=== PATIENT | female | born 1960 | race Caucasian/White ===

== ENCOUNTER 2016-12-15 22:02 | Inpatient (IN) | payer OTHER ==
[~2016-12-15] VITALS: Ht 154.9 cm; Wt 103.6 kg
--- NOTE | ~2016-12-15 | EKG ---
[place], [place] ELECTROCARDIOGRAM REPORT NAME: JAMAL BROWN UNIT #: [id number] ROOM: 405 DOCTOR: MANUELA HWANG MD BIRTHDATE: [birth year] DOS: 12/15/2016 STUDY DONE: 12/15/2016 at 2212. Sinus rhythm at a rate of 90. Low voltage in the precordial leads. Otherwise, normal. MANUELA HWANG MD CM:EKGRPT:ELECTROCARDIOGRAM REPORT [id number] MANUELA HWANG MD
--- NOTE | ~2016-12-15 | ST ---
[place], [place] EXERCISE STRESS TEST REPORT NAME: JAMAL BROWN [facility] #: [id number] UNIT #: [id number] ROOM: 405 DOCTOR: MANUELA HWANG MD BIRTHDATE: [birth year] DOS: 12/16/2016 PHARMACOLOGIC STRESS TEST INDICATIONS: Chest pain, history of coronary artery disease. PROCEDURE: The patient was given a rapid infusion of regadenoson followed by a saline flush. She was administered 0.4 mg intravenously. She experienced dyspnea with the infusion. Her resting heart rate of 70 elver to 97. The resting blood pressure of 126/74 fell to 120/72. She had normal sinus rhythm and a normal electrocardiogram throughout. 40 seconds after the infusion of regadenoson, she was given radionuclide intravenously. IMPRESSION: 1. Well tolerated infusion of regadenoson. 2. Radionuclide injected. Please see the separate imaging report for further details of the patient's stress test results. MANUELA HWANG MD CM:STRESS:EXERCISE STRESS TEST REPORT [id number] MANUELA HWANG MD
[~2016-12-15 22:02] MED LIST: ALBUTEROL0.09 MG/A2 INH; ALLOPURINOL300 MG PO; AMARYL4 MG PO; AMOXICILLIN500 MG PO; AMOXICILLIN875 MG PO; ASPIRIN81 M1 PO; ATIVAN1 MG PO; AUGMENTIN 875 M1 TAB PO; BACTRIM DS 8001 TA1 PO; CIPRODEX 0.3%-7.5 ML OT; DIFLUCAN100 MG PO; DIFLUCAN150 MG PO; FLEXERIL5 MG PO; FLOMAX0.4 MG PO; FLONASE ALLERG9.9 ML NAS; FLONASE0.05 MG/AC NS; HYDROCODONE BIT1 T11 PO; IMDUR SA60 M1 PO; JANUVIA100 MG PO; KEPPRA500 MG PO; LEVAQUIN750 MG PO; LEXAPRO20 MG PO; LIPITOR80 MG PO; LISINOPRIL5 MG PO; LOTRIMIN 1%15 GM T; MACROBID100 M1 PO; MECLIZINE HCL12.5 MG PO; MECLIZINE HCL25 M1 PO; MEDROL DOSEPAK4 MG PO; METFORMIN1000 MG PO; METFORMIN500 MG PO; METOPROLOL SUCC25 M2 PO; MOTRIN800 MG PO; Metformin Hydr500 MG PO; NITROGLYCERIN0.4 MG SL; NYSTATIN 5 ML5 ML; NYSTATIN CREAM15 GM T; PLAVIX75 MG PO; POTASSIUM CITR10 MEQ PO; PREDNISONE20 MG PO; PRILOSEC20 MG PO; PROBIOTIC FORMU1 CAP PO; RANEXA500 MG PO; SALINE MIST 4545 ML NAS; TOPROL XL100 MG PO; TORADOL PO; ULTRAM50 MG PO; VITAMIN D31000 IU PO; VITAMIN D32000 I1 PO; ZANTAC150 MG PO; ZITHROMAX250 MG PO; ZOFRAN ODT4 MG SL; ZYLOPRIM100 MG PO
[2016-12-15 22:13] VITALS: BP 118/64
[2016-12-15 22:41] LABS: BASO # 0.1 10*3/uL (0.0-0.1); BASO % 0.7 % (0.0-1.0); EOS # 0.6 10*3/uL (0.0-0.4); EOS % 6.7 % (1.0-4.0); HEMATOCRIT 30.9 % (37.0-47.0); HEMOGLOBIN 9.9 g/dl (12.0-16.0); LYMPH # 3.2 10*3/uL (1.3-4.4); MEAN CELL VOLUME 90.9 fl (81.0-99.0); MEAN CORPUSCULAR HGB 29.1 pg (27.0-31.0); MEAN PLATELET VOLUME 9.1 fl (9.6-12.3); MONO # 0.7 10*3/uL (0.1-1.0); MONO % 6.9 % (3.0-9.0); NEUT # 4.9 10*3/uL (2.3-7.9); NEUT % 51.5 % (47.0-73.0); PLATELET COUNT AUTOMATED 259 10*3/uL (130-400); RED CELL DISTRI WIDTH 14.8 % (0-14.5); WHITE BLOOD COUNT 9.5 10*3/uL (4.8-10.8)
[2016-12-15 22:50] LABS: PROTHROMBIN TIME 10.5 SECONDS (9.0-12.4)
[2016-12-15 22:58] LABS: ALBUMIN 3.5 gm/dl (3.1-4.5); ALKALINE PHOSPHATASE 110 U/L (45-117); BILIRUBIN, TOTAL 0.3 mg/dl (0.2-1.0); BUN 19 mg/dl (7-24); CARBON DIOXIDE 22 mmol/L (21-32); CHLORIDE 107 mmol/L (98-107); CKMB 1.3 ng/ml (0.5-3.6); CPK 86 U/L (26-192); EST GLOM FILT AFRICAN AMERICAN > 60 ml/min; GLUCOSE 141 mg/dL (65-99); POTASSIUM 4.1 mmol/L (3.5-5.1); SGOT/AST 18 IU/L (3-35); SGPT/ALT 24 U/L (12-78); SODIUM 142 mmol/L (136-145); TOTAL PROTEIN 7.3 gm/dL (6.4-8.2)
[2016-12-15 22:59] LABS: TROPONIN I < 0.015 ng/ml (<0.045)
[2016-12-15] MEDS ORDERED: FEOSOL325 MG PO (23:23)
[2016-12-15] MEDS ORDERED: IMDUR SA60 M1 PO (23:24)
[2016-12-15 23:25] VITALS: BP 132/78
[2016-12-16] VITALS: BP 133/76
[2016-12-16 00:14] VITALS: BP 133/76
[2016-12-16 06:18] LABS: BASO # 0.1 10*3/uL (0.0-0.1); BASO % 0.6 % (0.0-1.0); EOS # 0.6 10*3/uL (0.0-0.4); EOS % 7.3 % (1.0-4.0); HEMATOCRIT 29.2 % (37.0-47.0); HEMOGLOBIN 9.2 g/dl (12.0-16.0); LYMPH # 3.1 10*3/uL (1.3-4.4); LYMPH % 38.8 % (27.0-41.0); MEAN CELL VOLUME 92.1 fl (81.0-99.0); MEAN CORPUSCULAR HGB CONC 31.5 g/dl (33.0-37.0); MEAN PLATELET VOLUME 9.3 fl (9.6-12.3); MONO # 0.6 10*3/uL (0.1-1.0); NEUT # 3.7 10*3/uL (2.3-7.9); NEUT % 46.2 % (47.0-73.0); PLATELET COUNT AUTOMATED 236 10*3/uL (130-400); RED BLOOD COUNT 3.17 10*6/uL (4.10-5.10); RED CELL DISTRI WIDTH 14.7 % (0-14.5)
[2016-12-16 06:38] LABS: HEMOGLOBIN A1c 6.6 % (4.8-5.6)
[2016-12-16 07:04] LABS: BUN 18 mg/dl (7-24); CARBON DIOXIDE 25 mmol/L (21-32); CHLORIDE 108 mmol/L (98-107); CHOLESTEROL 143 mg/dL (<200); EST GLOM FILT AFRICAN AMERICAN > 60 ml/min; GLUCOSE 78 mg/dL (65-99); MAGNESIUM 1.1 mg/dL (1.5-2.1); PHOSPHOROUS 3.5 mg/dL (2.5-4.9); SODIUM 142 mmol/L (136-145); TRIGLYCERIDES 140 mg/dl (<150); VLDL CHOLESTEROL 28 mg/dL (6-40)
[2016-12-16 07:11] LABS: FOLIC ACID 17.35 ng/mL (>5.38); VITAMIN D, 25-HYDROXY 33.9 ng/mL (30-100)
[2016-12-16 07:12] LABS: FREE T4 1.02 ng/dl (0.76-1.46); HDL CHOLESTEROL 38 mg/dl (40-60); LDL CHOLESTEROL 77 mg/dL (9-159)
[2016-12-16 08:00] VITALS: BP 110/74
[2016-12-16] MEDS ORDERED: METOPROLOL SUC100 M1 PO (14:40)
[2016-12-16] MEDS ORDERED: IMDUR SA60 M1 PO (14:40)
== END 2016-12-16 15:54 | disposition home or self-care (01) | DRG 205 ==
LOC: ED 22:02 → 4E 23:11 → EDHOLD 23:11 → 4E 23:41
PROVIDERS: Emergency Medicine; Internal Medicine
DX: M94.0 Chondrocostal junction syndrome [Tietze] (principal); N17.0 Acute kidney failure with tubular necrosis; Z68.42 Body mass index [BMI] 45.0-49.9, adult; I10 Essential (primary) hypertension; E11.9 Type 2 diabetes mellitus without complications; D64.9 Anemia, unspecified; E78.5 Hyperlipidemia, unspecified; R07.89 Other chest pain; I25.10 Atherosclerotic heart disease of native coronary artery without angina pectoris; K21.9 Gastro-esophageal reflux disease without esophagitis; G40.909 Epilepsy, unspecified, not intractable, without status epilepticus; E66.01 Morbid (severe) obesity due to excess calories; R00.0 Tachycardia, unspecified; Z87.440 Personal history of urinary (tract) infections; Z90.49 Acquired absence of other specified parts of digestive tract; Z82.49 Family history of ischemic heart disease and other diseases of the circulatory system; Z88.1 Allergy status to other antibiotic agents; Z88.5 Allergy status to narcotic agent; Z88.8 Allergy status to other drugs, medicaments and biological substances; Z91.048 Other nonmedicinal substance allergy status; Z79.82 Long term (current) use of aspirin; Z79.899 Other long term (current) drug therapy

== ENCOUNTER 2017-04-18 19:28 | Emergency (ER) | payer OTHER ==
[~2017-04-18] VITALS: Ht 170.1 cm; Wt 88.5 kg
[~2017-04-18 19:28] MED LIST changes: +FEOSOL325 MG PO; +METOPROLOL SUC100 M1 PO
[2017-04-18 20:38] LABS: BASO # 0.1 10*3/uL (0.0-0.1); BASO % 0.7 % (0.0-1.0); EOS # 0.7 10*3/uL (0.0-0.4); EOS % 7.8 % (1.0-4.0); HEMATOCRIT 38.2 % (37.0-47.0); HEMOGLOBIN 12.1 g/dl (12.0-16.0); LYMPH # 3.1 10*3/uL (1.3-4.4); MEAN CELL VOLUME 88.2 fl (81.0-99.0); MEAN CORPUSCULAR HGB 27.9 pg (27.0-31.0); MEAN CORPUSCULAR HGB CONC 31.7 g/dl (33.0-37.0); MEAN PLATELET VOLUME 9.3 fl (9.6-12.3); MONO # 0.6 10*3/uL (0.1-1.0); MONO % 6.2 % (3.0-9.0); NEUT # 4.9 10*3/uL (2.3-7.9); NEUT % 52.1 % (47.0-73.0); PLATELET COUNT AUTOMATED 230 10*3/uL (130-400); RED BLOOD COUNT 4.33 10*6/uL (4.10-5.10); RED CELL DISTRI WIDTH 14.6 % (0-14.5); WHITE BLOOD COUNT 9.4 10*3/uL (4.8-10.8)
[2017-04-18 20:56] LABS: ALBUMIN 3.6 gm/dl (3.1-4.5); ALKALINE PHOSPHATASE 88 U/L (45-117); BILIRUBIN, TOTAL 0.3 mg/dl (0.2-1.0); BUN 16 mg/dl (7-24); CARBON DIOXIDE 24 mmol/L (21-32); CHLORIDE 108 mmol/L (98-107); EST GLOM FILT AFRICAN AMERICAN > 60 ml/min; GLUCOSE 118 mg/dL (65-99); MAGNESIUM 1.6 mg/dL (1.5-2.1); POTASSIUM 4.4 mmol/L (3.5-5.1); SGOT/AST 21 IU/L (3-35); SGPT/ALT 28 U/L (12-78); SODIUM 139 mmol/L (136-145); TOTAL PROTEIN 7.5 gm/dL (6.4-8.2)
[2017-04-18 20:57] LABS: TROPONIN I < 0.015 ng/ml (<0.045)
[2017-04-18 21:01] LABS: BILIRUBIN NEGATIVE (NEGATIVE); BLOOD TRACE-INTACT (NEGATIVE); CLARITY CLEAR (CLEAR); COLOR YELLOW (YELLOW); GLUCOSE NEGATIVE (NEGATIVE); KETONE TRACE (NEGATIVE); LEUKO ESTERASE NEGATIVE (NEGATIVE); NITRITE NEGATIVE (NEGATIVE); PROTEIN NEGATIVE (NEGATIVE); SPECIFIC GRAVITY >= 1.030 (1.005-1.030); UROBILINOGEN 0.2 E.U./dl (0.2-1.0)
[2017-04-18 21:16] LABS: BACTERIA 1+
[2017-04-18 21:17] LABS: URINE REFLEX COMMENT NO (NO)
[2017-04-19] MEDS ORDERED: NORCO 5-325 TA1 EACH PO (01:10)
[2017-04-19] MEDS ORDERED: ZOFRAN ODT4 MG SL (01:10)
== END 2017-04-19 01:22 | disposition home or self-care (01) ==
LOC: ED 19:28
PROVIDERS: Emergency Medicine Emergency Medical Services
DX: N23 Unspecified renal colic (principal); I10 Essential (primary) hypertension; I25.10 Atherosclerotic heart disease of native coronary artery without angina pectoris; E11.9 Type 2 diabetes mellitus without complications; K21.0 Gastro-esophageal reflux disease with esophagitis; E78.5 Hyperlipidemia, unspecified; Z87.442 Personal history of urinary calculi; Z88.1 Allergy status to other antibiotic agents; Z88.6 Allergy status to analgesic agent; Z88.8 Allergy status to other drugs, medicaments and biological substances; Z79.899 Other long term (current) drug therapy; Z79.82 Long term (current) use of aspirin

== ENCOUNTER 2017-05-06 20:30 | Emergency (ER) | payer OTHER ==
[~2017-05-06 20:30] MED LIST changes: +NORCO 5-325 TA1 EACH PO
[2017-05-06] MEDS ORDERED: ROBITUSSIN DM 105 ML PO (21:02)
[2017-05-06] MEDS ORDERED: PREDNISONE10 MG PO (21:02)
[2017-05-06] MEDS ORDERED: FLONASE ALLERG9.9 ML NAS (21:02)
[2017-05-06] MEDS ORDERED: CLARITIN10 MG PO (21:02)
== END 2017-05-06 22:08 | disposition home or self-care (01) ==
LOC: ED 20:30
DX: B34.9 Viral infection, unspecified (principal); R03.0 Elevated blood-pressure reading, without diagnosis of hypertension; I25.10 Atherosclerotic heart disease of native coronary artery without angina pectoris; K21.9 Gastro-esophageal reflux disease without esophagitis; I10 Essential (primary) hypertension; E11.9 Type 2 diabetes mellitus without complications; G40.909 Epilepsy, unspecified, not intractable, without status epilepticus; E78.5 Hyperlipidemia, unspecified; Z88.6 Allergy status to analgesic agent; Z88.1 Allergy status to other antibiotic agents; Z88.8 Allergy status to other drugs, medicaments and biological substances; Z79.82 Long term (current) use of aspirin; Z79.899 Other long term (current) drug therapy

== ENCOUNTER → 2018-02-16 | Outpatient (CLI) | payer OTHER ==
[~2018-02-16] MED LIST changes: +CLARITIN10 MG PO; +PREDNISONE10 MG PO; +ROBITUSSIN DM 105 ML PO
== END | disposition home or self-care (01) ==
LOC: US 13:20
DX: R93.8 Abnormal findings on diagnostic imaging of other specified body structures (principal); N95.0 Postmenopausal bleeding

== ENCOUNTER 2018-11-02 14:12 | Emergency (ER) | payer OTHER ==
[~2018-11-02] VITALS: Ht 154.9 cm; Wt 100.7 kg
--- NOTE | ~2018-11-02 | EKG ---
[place], [place] ELECTROCARDIOGRAM REPORT NAME: JAMAL BROWN UNIT #: [id number] ROOM: DOCTOR: EPIPHANY DRAFT REPORT BIRTHDATE: [birth year] [facility] Test Date: 2018-11-02 Test Time: 14:59:46 Pat Name: JAMAL BROWN Department: Room: Gender: F Medical Transcription Editor: Kaity Andino : 1960 Requested By: MEGHAN GOODMAN Order Number: [id number] Reading MD: Emilio Steiner MD Measurements Intervals [place] Rate: 69 P: 50 ND: 150 QRS: -4 QRSD: 127 T: 1 QT: 407 QTc: 436 Interpretive Statements Sinus rhythm Right bundle branch block Low voltage precordial leads. No previous ECG available for comparison Electronically Signed On 11-05-2018 15:24:31 PST by Emilio Setiner MD CM:EKGRPT:ELECTROCARDIOGRAM REPORT [id number] MEGHAN GOODMAN EPIPHANY DRAFT REPORT MEGHAN GOODMAN
[~2018-11-02 14:12] MED LIST changes: -CEPHALEXIN500 M1 PO; -MEDROXYPROGESTE10 M1 PO; -Meclizine25 MG PO; -NYST SUSP PO; -STOOL SOFTENER100 M3 PO
[2018-11-02 14:37] LABS: BILIRUBIN NEGATIVE (NEGATIVE); BLOOD TRACE-INTACT (NEGATIVE); CLARITY CLEAR (CLEAR); COLOR YELLOW (YELLOW); GLUCOSE 2+ (NEGATIVE); KETONE NEGATIVE (NEGATIVE); LEUKO ESTERASE 1+ (NEGATIVE); NITRITE NEGATIVE (NEGATIVE); PH 5.5 (5.0-9.0)
[2018-11-02 14:45] LABS: BACTERIA 1+; HYALINE CAST 0-2
[2018-11-02 14:55] LABS: BASO # 0.1 10*3/uL (0.0-0.1); BASO % 1.1 % (0.0-1.0); EOS # 0.9 10*3/uL (0.0-0.4); EOS % 10.8 % (1.0-4.0); HEMATOCRIT 39.5 % (37.0-47.0); HEMOGLOBIN 13.1 g/dl (12.0-16.0); LYMPH # 2.1 10*3/uL (1.3-4.4); LYMPH % 25.6 % (27.0-41.0); MEAN CELL VOLUME 93.4 fl (81.0-99.0); MEAN CORPUSCULAR HGB CONC 33.2 g/dl (33.0-37.0); MEAN PLATELET VOLUME 9.5 fl (9.6-12.3); MONO # 0.6 10*3/uL (0.1-1.0); NEUT # 4.5 10*3/uL (2.3-7.9); NEUT % 55.1 % (47.0-73.0); PLATELET COUNT AUTOMATED 217 10*3/uL (130-400); RED BLOOD COUNT 4.23 10*6/uL (4.10-5.10); RED CELL DISTRI WIDTH 13.4 % (0-14.5); WHITE BLOOD COUNT 8.1 10*3/uL (4.8-10.8)
[2018-11-02 15:04] LABS: ACT PARTIAL THROMBO TIME 21.8 SECONDS (20.8-31.5)
[2018-11-02 15:16] LABS: ALBUMIN 3.5 gm/dl (3.1-4.5); ALKALINE PHOSPHATASE 110 U/L (45-117); BUN 18 mg/dl (7-24); CHLORIDE 105 mmol/L (98-107); CREATININE 1.06 mg/dL (0.55-1.02); LIPASE 244 U/L (73-393); POTASSIUM 4.5 mmol/L (3.5-5.1); SGOT/AST 25 IU/L (3-35); SGPT/ALT 30 U/L (12-78); SODIUM 138 mmol/L (136-145); TOTAL PROTEIN 7.6 gm/dL (6.4-8.2)
[2018-11-02 15:17] LABS: TROPONIN I < 0.015 ng/ml (<0.045)
[2018-11-02] MEDS ORDERED: CEPHALEXIN500 M1 PO ×2 (17:20→17:44)
[2018-11-02] MEDS ORDERED: Meclizine25 MG PO ×2 (17:20→17:44)
[2018-11-02] MEDS ORDERED: DIFLUCAN150 MG PO (17:42)
[2018-11-02] MEDS ORDERED: NYST SUSP PO (17:42)
[2019-03-06] MEDS ORDERED: METOPROLOL SUC100 M1 PO (12:56)
[2019-03-06] MEDS ORDERED: MEDROXYPROGESTE10 M1 PO (12:57)
[2019-03-06] MEDS ORDERED: STOOL SOFTENER100 M3 PO (12:58)
== END 2018-11-02 17:32 | disposition home or self-care (01) ==
LOC: ED 14:12
PROVIDERS: Nurse Practitioner Family
DX: R42 Dizziness and giddiness (principal); N39.0 Urinary tract infection, site not specified; H92.02 Otalgia, left ear; I25.10 Atherosclerotic heart disease of native coronary artery without angina pectoris; E11.9 Type 2 diabetes mellitus without complications; K21.9 Gastro-esophageal reflux disease without esophagitis; E78.5 Hyperlipidemia, unspecified; I10 Essential (primary) hypertension; E66.01 Morbid (severe) obesity due to excess calories; G40.909 Epilepsy, unspecified, not intractable, without status epilepticus; Z91.048 Other nonmedicinal substance allergy status; Z88.1 Allergy status to other antibiotic agents; Z88.6 Allergy status to analgesic agent; Z88.8 Allergy status to other drugs, medicaments and biological substances; Z79.899 Other long term (current) drug therapy; Z79.84 Long term (current) use of oral hypoglycemic drugs; Z79.82 Long term (current) use of aspirin

== ENCOUNTER → 2018-11-02 | Outpatient (CLI) | payer OTHER ==
[~2018-11-02] MED LIST changes: +CEPHALEXIN500 M1 PO; +MEDROXYPROGESTE10 M1 PO; +Meclizine25 MG PO; +NYST SUSP PO; +STOOL SOFTENER100 M3 PO; +VITAMIN D32000 UNIT PO
--- NOTE | ~2018-11-02 | ST ---
[place], [place] EXERCISE STRESS TEST REPORT NAME: JAMAL BROWN [facility] #: [id number] UNIT #: [id number] ROOM: DOCTOR: NELLI CONTE MD BIRTHDATE: [birth year] DOS: 11/02/2018 LEXISCAN STRESS EKG REPORT REFERRING PHYSICIAN: Dr. Steiner. INDICATION: Precordial chest pain. The patient was underwent standard protocol Lexiscan stress EKG. Baseline EKG showed normal sinus rhythm with incomplete right bundle branch block. Heart rate of 68. The patient's baseline blood pressure is 130/80. The patient's peak heart was 103 with a blood pressure 122/78. The patient had no chest pain, no EKG changes, no ischemic changes. SUMMARY OF FINDINGS: Unremarkable Lexiscan stress EKG. Please see separate report for perfusion scan results. NELLI CONTE MD CM:STRESS:EXERCISE STRESS TEST REPORT [id number] NELLI CONTE MD
--- NOTE | 2018-11-02 11:59 | NUR ---
INFORMED SIGNED CONSENT OBTAINED FOR LEXISCAN STRESS TEST WITH DR CONTE. RESTING EKG RBBB HR 68 BP 130/80. PULSE OX 96% LUNGS CLEAR. PT COMPLETED ONE MINUTE OF A LEXISCAN PROTOCOL WITH PT RECEIVING LEXISCAN 0.4MG IV OVER 10 SECONDS. PT C/O SOB WITH INJECTION. LAST RECOVERY HR OF 98 BP 122/78. NO ARRHYTHMIAS NOTED NONDIAGNOSITIC RBBB. PT IN STABLE CONDITION, AWAITING NUCLEAR IMAGES.
--- NOTE | 2018-11-02 14:05 | NUR ---
STRESS IMAGING COMPLETED AND SAT UP. C/O HEADACHE AND DIZZINESS WITH SITTING UP. WHEN TURNS HEAD C/O FEELING THE "ROOM IS SPINNING." HAD SMALL EMESIS. WITH PT. TAKEN TO EMERGENCY ROOM VIA WHEELCHAIR IN STABLE CONDITION.
--- NOTE | 2018-11-02 14:15 | NUR ---
DR. CONTE NOTIFIED PT WAS TAKEN TO ER.
== END | disposition home or self-care (01) ==
LOC: CARD 00:45
DX: R07.2 Precordial pain (principal); R53.81 Other malaise

== ENCOUNTER → 2018-11-15 | Outpatient (CLI) | payer OTHER ==
[~2018-11-15] MED LIST changes: +CEPHALEXIN500 M1 PO; +MEDROXYPROGESTE10 M1 PO; +Meclizine25 MG PO; +NYST SUSP PO; +STOOL SOFTENER100 M3 PO
== END | disposition home or self-care (01) ==
LOC: CARD 02:39
DX: R06.09 Other forms of dyspnea (principal)

== ENCOUNTER → 2019-03-13 | Day surgery (SDC) | payer OTHER ==
[~2019-03-13] VITALS: Ht 154.9 cm; Wt 103.4 kg
--- NOTE | ~2019-03-13 | O ---
[place], [place] OPERATIVE NOTE [id number] UNIT #: [id number] ROOM: DOCTOR: AAMIR MOSLEY MD BIRTHDATE: [birth year] DOS: 03/13/2019 PREOPERATIVE DIAGNOSIS: Cataract, right eye. POSTOPERATIVE DIAGNOSIS: Cataract, right eye. OPERATION: Extracapsular cataract extraction by phacoemulsification with posterior chamber intraocular lens implantation, right eye. ANESTHESIA: Monitored standby. OPERATIVE FINDINGS AND PROCEDURE: 2% Xylocaine topical anesthetic gel was applied to the eye in the preop area. The patient was taken to the operating room and prepped and draped in the standard fashion for sterile intraocular surgery. A time out procedure was performed verifying correct patient, correct site and corrects lens with Awa Mosley M.D. The operating microscope was swung into position and the lid speculum was inserted. Using a Alejandrina paracentesis blade, a paracentesis was made through clear cornea. Viscoelastic was used to fill the anterior chamber. Using a metal keratome a 2.4 mm self-sealing clear corneal cataract incision was made temporally at the limbus. Using a pre-bent 25 gauge cystotome needle, a standard continuous curvilinear capsulorrhexis was performed. The anterior capsule was removed with forceps. The lens nucleus was hydrodissected and phacoemulsified in the posterior chamber. Cortical material was removed with the irrigation aspiration hand piece and the posterior capsule was then polished with a curet under irrigation. The posterior chamber and capsular bag were filled with viscoelastic. A posterior chamber intraocular lens manufactured by: [employer]reet, Model #[id number] and 17.5 diopters in strength were then inserted into the posterior chamber and within the capsular bag using the lens cartridge and injector system. Viscoelastic was removed using the irrigation aspiration handpiece. The anterior chamber was filled with balanced salt solution through the paracentesis. Both the paracentesis site and cataract incisions were hydrated with BSS and verified to be water-tight and self-sealing. The incision checked to be water-tight using a Weck-Bernarda sponge. The integrity of the cataract wound and ocular tension were checked. Lid speculum and drapes were removed. The patient was transferred from the operating room to the recovery room in satisfactory condition. [place], [place] OPERATIVE NOTE NAME: JAMAL BROWN UNIT #: [id number] ROOM: DOCTOR: AAMIR MOSLEY MD BIRTHDATE: [birth year] AAMIR MOSLEY MD CM:OPRECORD:OPERATIVE NOTE 0814 1043 AAMIR MOSLEY MD 03/13/19 1041 interface
[2019-03-13 06:45] VITALS: BP 117/66
[2019-03-13 08:13] VITALS: BP 125/63
[2019-03-13 08:28] VITALS: BP 119/62
[2019-03-13 08:42] VITALS: BP 116/68
== END | disposition home or self-care (01) ==
LOC: SDC 03-07 08:00
DX: E11.36 Type 2 diabetes mellitus with diabetic cataract (principal); H25.11 Age-related nuclear cataract, right eye; I10 Essential (primary) hypertension; G40.909 Epilepsy, unspecified, not intractable, without status epilepticus; F32.9 Major depressive disorder, single episode, unspecified; K21.9 Gastro-esophageal reflux disease without esophagitis; E66.9 Obesity, unspecified; I25.118 Atherosclerotic heart disease of native coronary artery with other forms of angina pectoris; M19.90 Unspecified osteoarthritis, unspecified site; Z68.41 Body mass index [BMI] 40.0-44.9, adult; Z88.8 Allergy status to other drugs, medicaments and biological substances; Z88.1 Allergy status to other antibiotic agents; Z79.899 Other long term (current) drug therapy; Z79.84 Long term (current) use of oral hypoglycemic drugs; Z79.82 Long term (current) use of aspirin; Z98.890 Other specified postprocedural states; Z87.442 Personal history of urinary calculi; Z91.048 Other nonmedicinal substance allergy status; Z87.01 Personal history of pneumonia (recurrent); Z82.49 Family history of ischemic heart disease and other diseases of the circulatory system; Z82.3 Family history of stroke; Z83.3 Family history of diabetes mellitus

== ENCOUNTER → 2019-04-17 | Day surgery (SDC) | payer OTHER ==
[~2019-04-17] VITALS: Ht 154.9 cm; Wt 103.4 kg
--- NOTE | ~2019-04-17 | O ---
[place], [place] OPERATIVE NOTE NAME: JAMAL BROWN UNIT #: [id number] ROOM: DOCTOR: AAMIR MOSLEY MD BIRTHDATE: [birth year] DOS: 04/17/2019 PREOPERATIVE DIAGNOSIS: Cataract, left eye. POSTOPERATIVE DIAGNOSIS: Cataract, left eye. OPERATION: Extracapsular cataract extraction by phacoemulsification with posterior chamber intraocular lens implantation, left eye. ANESTHESIA: Monitored standby. OPERATIVE FINDINGS AND PROCEDURE: 2% Xylocaine topical anesthetic gel was applied to the eye in the preop area. The patient was taken to the operating room and prepped and draped in the standard fashion for sterile intraocular surgery. A time out procedure was performed verifying correct patient, correct site and corrects lens with Awa Mosley M.D. The operating microscope was swung into position and the lid speculum was inserted. Using a Alejandrina paracentesis blade, a paracentesis was made through clear cornea. A mixture of preservative free lidocaine 4% and preservative-free epinephrine 1:1000 in balanced salt solution was injected into the anterior chamber. Viscoelastic was used to fill the anterior chamber. Using a metal keratome a 2.4 mm self-sealing clear corneal cataract incision was made temporally at the limbus. Using a pre-bent 25 gauge cystotome needle, a standard continuous curvilinear capsulorrhexis was performed. The anterior capsule was removed with forceps. The lens nucleus was hydrodissected and phacoemulsified in the posterior chamber. Cortical material was removed with the irrigation aspiration hand piece and the posterior capsule was then polished with a curet under irrigation. The posterior chamber and capsular bag were filled with viscoelastic. A posterior chamber intraocular lens manufactured by: Preet, Model #[id number] and 21.0 diopters in strength were then inserted into the posterior chamber and within the capsular bag using the lens cartridge and injector system. Viscoelastic was removed using the irrigation aspiration handpiece. The anterior chamber was filled with balanced salt solution through the paracentesis. Both the paracentesis site and cataract incisions were hydrated with BSS and verified to be water-tight and self-sealing. Cefuroxime 1 mg/0.1 mL was injected into the anterior chamber through the paracentesis site. The incision checked to be water-tight using a Weck-Bernarda sponge. The integrity of the cataract wound and ocular tension were checked. Lid speculum and drapes were removed. The patient was transferred from the operating room to the recovery room in satisfactory condition. [place], [place] OPERATIVE NOTE NAME: JAMAL BROWN UNIT #: [id number] ROOM: DOCTOR: AAMIR MOSLEY MD BIRTHDATE: [birth year] AAMIR MOSLEY MD CM:OPRECORD:OPERATIVE NOTE 1103 1201 AAMIR MOSLEY MD 04/17/19 1202 interface
[2019-04-17 10:13] VITALS: BP 146/42
[2019-04-17 10:50] VITALS: BP 134/84
[2019-04-17 11:05] VITALS: BP 121/79
[2019-04-17 11:17] VITALS: BP 126/72
== END | disposition home or self-care (01) ==
LOC: SDC 04-12 14:00
DX: H25.812 Combined forms of age-related cataract, left eye (principal); I10 Essential (primary) hypertension; I25.119 Atherosclerotic heart disease of native coronary artery with unspecified angina pectoris; E11.9 Type 2 diabetes mellitus without complications; F41.9 Anxiety disorder, unspecified; F32.9 Major depressive disorder, single episode, unspecified; K21.9 Gastro-esophageal reflux disease without esophagitis; G47.33 Obstructive sleep apnea (adult) (pediatric); E78.5 Hyperlipidemia, unspecified; E66.9 Obesity, unspecified; Z68.41 Body mass index [BMI] 40.0-44.9, adult; Z98.890 Other specified postprocedural states; Z79.84 Long term (current) use of oral hypoglycemic drugs; Z79.899 Other long term (current) drug therapy; Z88.1 Allergy status to other antibiotic agents; Z88.8 Allergy status to other drugs, medicaments and biological substances; Z95.5 Presence of coronary angioplasty implant and graft; Z82.49 Family history of ischemic heart disease and other diseases of the circulatory system; Z83.3 Family history of diabetes mellitus; Z82.3 Family history of stroke

== ENCOUNTER 2019-05-26 20:10 | Emergency (ER) | payer OTHER ==
[~2019-05-26] VITALS: Ht 154.9 cm; Wt 98.4 kg
[2019-05-26 21:15] LABS: BASO # 0.1 10*3/uL (0.0-0.1); BASO % 1.1 % (0.0-1.0); EOS # 0.7 10*3/uL (0.0-0.4); EOS % 8.2 % (1.0-4.0); LYMPH % 34.4 % (27.0-41.0); MEAN CELL VOLUME 96.9 fl (81.0-99.0); MEAN CORPUSCULAR HGB 31.4 pg (27.0-31.0); MEAN CORPUSCULAR HGB CONC 32.4 g/dl (33.0-37.0); MEAN PLATELET VOLUME 9.4 fl (9.6-12.3); MONO # 0.6 10*3/uL (0.1-1.0); MONO % 6.8 % (3.0-9.0); NEUT # 4.3 10*3/uL (2.3-7.9); NEUT % 49.3 % (47.0-73.0); PLATELET COUNT AUTOMATED 222 10*3/uL (130-400); RED BLOOD COUNT 3.82 10*6/uL (4.10-5.10); RED CELL DISTRI WIDTH 13.9 % (0-14.5); WHITE BLOOD COUNT 8.8 10*3/uL (4.8-10.8)
[2019-05-26 21:29] LABS: ALBUMIN 3.6 gm/dl (3.1-4.5); ALKALINE PHOSPHATASE 86 U/L (45-117); BUN 18 mg/dl (7-24); CHLORIDE 109 mmol/L (98-107); CREATININE 1.09 mg/dL (0.55-1.02); SGOT/AST 13 IU/L (3-35); SGPT/ALT 22 U/L (12-78); SODIUM 138 mmol/L (136-145); TOTAL PROTEIN 7.1 gm/dL (6.4-8.2)
[2019-05-26 22:23] LABS: BILIRUBIN NEGATIVE (NEGATIVE); BLOOD TRACE-INTACT (NEGATIVE); CLARITY SL CLOUDY (CLEAR); COLOR YELLOW (YELLOW); GLUCOSE NEGATIVE (NEGATIVE); KETONE NEGATIVE (NEGATIVE); LEUKO ESTERASE 1+ (NEGATIVE); NITRITE NEGATIVE (NEGATIVE); SPECIFIC GRAVITY >= 1.030 (1.005-1.030); UROBILINOGEN 0.2 E.U./dl (0.2-1.0)
[2019-05-26 22:44] LABS: EPITHELIAL CELLS 15-20
[2019-05-26 22:45] LABS: BACTERIA TRACE
[2019-05-26] MEDS ORDERED: CYCLOBENZAPRINE10 MG PO (23:49)
== END 2019-05-26 23:53 | disposition home or self-care (01) ==
LOC: ED 20:10
PROVIDERS: Emergency Medicine
DX: K57.90 Diverticulosis of intestine, part unspecified, without perforation or abscess without bleeding (principal); I25.10 Atherosclerotic heart disease of native coronary artery without angina pectoris; E11.9 Type 2 diabetes mellitus without complications; I10 Essential (primary) hypertension; K21.9 Gastro-esophageal reflux disease without esophagitis; E78.5 Hyperlipidemia, unspecified; E66.01 Morbid (severe) obesity due to excess calories; G40.909 Epilepsy, unspecified, not intractable, without status epilepticus; Z88.1 Allergy status to other antibiotic agents; Z88.6 Allergy status to analgesic agent; Z88.8 Allergy status to other drugs, medicaments and biological substances; Z79.899 Other long term (current) drug therapy; Z79.82 Long term (current) use of aspirin; Z87.442 Personal history of urinary calculi

== ENCOUNTER → 2019-07-25 | Day surgery (SDC) | payer OTHER ==
[~2019-07-25] VITALS: Ht 154.9 cm; Wt 98.4 kg
[~2019-07-25] MED LIST changes: +CYCLOBENZAPRINE10 MG PO; +IBU800 MG PO
[2019-07-25 07:18] VITALS: BP 137/75
[2019-07-25 08:17] VITALS: BP 97/58
[2019-07-25 08:30] VITALS: BP 121/58
[2019-07-25 08:46] VITALS: BP 129/70
== END | disposition home or self-care (01) ==
LOC: SDC 07-23 09:30
DX: Z12.11 Encounter for screening for malignant neoplasm of colon (principal); K57.30 Diverticulosis of large intestine without perforation or abscess without bleeding; I10 Essential (primary) hypertension; I25.10 Atherosclerotic heart disease of native coronary artery without angina pectoris; K21.9 Gastro-esophageal reflux disease without esophagitis; F41.9 Anxiety disorder, unspecified; E11.9 Type 2 diabetes mellitus without complications; I25.2 Old myocardial infarction; Z79.82 Long term (current) use of aspirin; Z79.899 Other long term (current) drug therapy; Z88.8 Allergy status to other drugs, medicaments and biological substances; Z90.49 Acquired absence of other specified parts of digestive tract; Z98.890 Other specified postprocedural states; Z82.49 Family history of ischemic heart disease and other diseases of the circulatory system; Z83.3 Family history of diabetes mellitus; Z82.3 Family history of stroke; Z86.010 Personal history of colon polyps
CPT/HCPCS: 00812; G0105

== ENCOUNTER 2019-08-11 18:20 | Emergency (ER) | payer OTHER ==
[~2019-08-11] VITALS: Ht 154.9 cm; Wt 97.5 kg
[~2019-08-11 18:20] MED LIST changes: -IBU800 MG PO
[2019-08-11 19:44] LABS: BILIRUBIN NEGATIVE (NEGATIVE); BLOOD 1+ (NEGATIVE); CLARITY CLEAR (CLEAR); COLOR YELLOW (YELLOW); GLUCOSE 1+ (NEGATIVE); KETONE NEGATIVE (NEGATIVE); LEUKO ESTERASE 1+ (NEGATIVE); NITRITE NEGATIVE (NEGATIVE); PH 5.5 (5.0-9.0); SPECIFIC GRAVITY >= 1.030 (1.005-1.030); UROBILINOGEN 0.2 E.U./dl (0.2-1.0)
[2019-08-11 19:55] LABS: BACTERIA 2+; MUCOUS 1+
[2019-08-11] MEDS ORDERED: IBU800 MG PO (21:24)
== END 2019-08-11 21:43 | disposition home or self-care (01) ==
LOC: ED 18:20
PROVIDERS: Nurse Practitioner Family
DX: M54.5 Low back pain (principal); R20.0 Anesthesia of skin; R20.2 Paresthesia of skin; E11.9 Type 2 diabetes mellitus without complications; I10 Essential (primary) hypertension; I25.10 Atherosclerotic heart disease of native coronary artery without angina pectoris; Z79.899 Other long term (current) drug therapy; Z79.82 Long term (current) use of aspirin; Z88.1 Allergy status to other antibiotic agents; Z88.6 Allergy status to analgesic agent; Z88.8 Allergy status to other drugs, medicaments and biological substances

== ENCOUNTER 2020-03-11 14:06 | Emergency (ER) | payer OTHER ==
[~2020-03-11] VITALS: Ht 154.9 cm; Wt 96.2 kg
[~2020-03-11 14:06] MED LIST changes: +IBU800 MG PO
[2020-03-11] MEDS ORDERED: NORCO 5-325 TA1 EACH PO (16:05)
[2020-03-11] MEDS ORDERED: METHOCARBAMOL500 M1 PO (16:05)
[2020-03-11] MEDS ORDERED: PREDNISONE50 MG PO (16:05)
== END 2020-03-11 16:24 | disposition home or self-care (01) ==
LOC: ED 14:06
DX: M54.41 Lumbago with sciatica, right side (principal); E11.9 Type 2 diabetes mellitus without complications; I10 Essential (primary) hypertension; I25.10 Atherosclerotic heart disease of native coronary artery without angina pectoris; K21.9 Gastro-esophageal reflux disease without esophagitis; Z88.1 Allergy status to other antibiotic agents; Z88.6 Allergy status to analgesic agent; Z88.8 Allergy status to other drugs, medicaments and biological substances; Z79.899 Other long term (current) drug therapy; Z79.82 Long term (current) use of aspirin

== ENCOUNTER → 2020-03-12 | Outpatient (CLI) | payer OTHER ==
[~2020-03-12] MED LIST changes: +METHOCARBAMOL500 M1 PO; +PREDNISONE50 MG PO
== END | disposition home or self-care (01) ==
LOC: RAD 14:41
DX: M54.16 Radiculopathy, lumbar region (principal)

== ENCOUNTER 2020-03-17 10:07 | Inpatient (IN) | payer OTHER ==
[~2020-03-17] VITALS: Ht 154.9 cm; Wt 99.3 kg
[2020-03-17 10:13] VITALS: BP 165/88
[2020-03-17 10:49] LABS: BASO % 0.1 % (0.0-1.0); EOS % 0.2 % (1.0-4.0); HEMATOCRIT 38.9 % (37.0-47.0); LYMPH # 4.5 10*3/uL (1.3-4.4); LYMPH % 31.4 % (27.0-41.0); MEAN CELL VOLUME 93.7 fl (81.0-99.0); MEAN CORPUSCULAR HGB 30.8 pg (27.0-31.0); MEAN CORPUSCULAR HGB CONC 32.9 g/dl (33.0-37.0); MEAN PLATELET VOLUME 9.3 fl (9.6-12.3); MONO # 1.2 10*3/uL (0.1-1.0); MONO % 8.2 % (3.0-9.0); NEUT # 8.5 10*3/uL (2.3-7.9); NEUT % 59.3 % (47.0-73.0); PLATELET COUNT AUTOMATED 254 10*3/uL (130-400); RED BLOOD COUNT 4.15 10*6/uL (4.10-5.10); RED CELL DISTRI WIDTH 13.5 % (0-14.5); WHITE BLOOD COUNT 14.3 10*3/uL (4.8-10.8)
[2020-03-17 11:11] LABS: ALBUMIN 3.6 gm/dl (3.1-4.5); ALKALINE PHOSPHATASE 98 U/L (45-117); BUN 33 mg/dl (7-24); CHLORIDE 105 mmol/L (98-107); CREATININE 1.09 mg/dL (0.55-1.02); POTASSIUM 3.8 mmol/L (3.5-5.1); SGOT/AST 15 IU/L (3-35); SGPT/ALT 31 U/L (12-78); SODIUM 136 mmol/L (136-145); TOTAL PROTEIN 7.2 gm/dL (6.4-8.2)
--- NOTE | 2020-03-17 11:40 | NUR ---
PUT PATIENT ON BEDSIDE COMMODE.
--- NOTE | 2020-03-17 11:56 | NUR ---
REASSESSED PTS PAIN. PT STATES PAIN HAS DECREASED IN RIGHT HIP.
[2020-03-17 12:00] VITALS: BP 160/100
[2020-03-17 12:11] LABS: BILIRUBIN NEGATIVE (NEGATIVE); BLOOD NEGATIVE (NEGATIVE); CLARITY SL CLOUDY (CLEAR); COLOR YELLOW (YELLOW); GLUCOSE NEGATIVE (NEGATIVE); KETONE NEGATIVE (NEGATIVE); LEUKO ESTERASE TRACE (NEGATIVE); NITRITE NEGATIVE (NEGATIVE); RBC 0-2 rbc/hpf (0-2); UROBILINOGEN 0.2 E.U./dl (0.2-1.0)
--- NOTE | 2020-03-17 12:29 | NUR ---
CHECKED PT. BG- 136.
[2020-03-17 14:24] VITALS: BP 160/98
--- NOTE | 2020-03-17 14:24 | NUR ---
PATIENT HAS MEDS IN PHARMACY.
--- NOTE | 2020-03-17 14:24 | NUR ---
Time: 1423 A 60 year old FEMALE admitted to 5E under services of JANEE JOYNER DO. Pt. arrived via stretcher from ER. Chief complaint: PAIN ALL OVER. NAI THOMSON
--- NOTE | 2020-03-17 14:24 | NUR ---
PATIENT WANTED HER BLOOD SUGAR CHECKED WHEN SHE GOT TO THE FLOOR. BSG WAS 190 WHEN CHECKED.
[2020-03-17] MEDS ORDERED: PEPCID AC20 MG PO (15:24)
--- NOTE | 2020-03-17 15:41 | NUR ---
RADHA INFORMED PATIENTS MED REC UP TO DATE AND BP ELVEATED AT 160/98.
[2020-03-17 16:00] VITALS: BP 142/58
--- NOTE | 2020-03-17 17:49 | NUR ---
PATIENT RESTING IN BED WITH EYES CLOSED AT THIS TIME. RESPS EASY AND REGULAR. WILL MONITOR AND ASSESS PAIN. CALL LIGHT IN REACH.
[2020-03-17 20:00] VITALS: BP 139/71
--- NOTE | 2020-03-17 20:08 | NUR ---
MEDICATED WITH PRN DILAUDID FOR C/O LEG PAIN RATED 10/10 ON A 0/10 PAIN SCALE. PATIENT TEARFUL IN BED. STATES IT STARTED HURTING WHEN SHE GOT UP TO USE THE RESTROOM. IV WAS FLUSHED WITH 10CC OF NORMAL SALINE AND BLOOD RETURN WAS SEEN BEFORE ADMINISTERING DILAUDID WITHOUT ANY VOICED COMPLAINTS FROM PATIENT. AFTER ADMINISTERING DILAUDID, THIS RN WAS ADMINISTERING 10 MORE CC OF NORMAL SALINE THROUGH THE SAME IV HEP LOCK, PATIENT STATED IT WAS BURNING. NO BLOOD RETURN WAS SEEN AT THIS TIME.
--- NOTE | 2020-03-17 20:28 | NUR ---
MEDICATED WITH PRN ZOFRAN FOR C/O NAUSEA. WILL MONITOR
--- NOTE | 2020-03-17 21:08 | NUR ---
DILAUDID EFFECTIVE PER PATIENT
--- NOTE | 2020-03-17 21:28 | NUR ---
ZOFRAN EFFECTIVE PER PATIENT
[2020-03-18] VITALS: BP 102/55
--- NOTE | 2020-03-18 02:11 | NUR ---
PATIENT RESTING IN BED WITH NO S/S OF DISTRESS. BED IN LOWEST POSITION, CALL LIGHT IN REACH
--- NOTE | 2020-03-18 04:01 | NUR ---
PATIENT CALLED OUT CRYING IN PAIN. DILAUDID GIVEN PER ORDER FOR C/O PAIN RATED 10/10 ON A 0/10 PAIN SCALE. WILL MONITOR.
--- NOTE | 2020-03-18 05:01 | NUR ---
PATIENT RESTING IN BED ON LEFT SIDE WITH EYES CLOSED. RESPS EASY AND REGULAR. DILAUDID SEEMS EFFECTIVE
[2020-03-18 06:18] LABS: BASO % 0.1 % (0.0-1.0); HEMATOCRIT 38.7 % (37.0-47.0); LYMPH # 0.9 10*3/uL (1.3-4.4); LYMPH % 8.2 % (27.0-41.0); MEAN CELL VOLUME 93.5 fl (81.0-99.0); MEAN CORPUSCULAR HGB 30.4 pg (27.0-31.0); MEAN CORPUSCULAR HGB CONC 32.6 g/dl (33.0-37.0); MEAN PLATELET VOLUME 9.6 fl (9.6-12.3); MONO # 0.3 10*3/uL (0.1-1.0); MONO % 2.4 % (3.0-9.0); NEUT # 9.2 10*3/uL (2.3-7.9); NEUT % 88.2 % (47.0-73.0); PLATELET COUNT AUTOMATED 261 10*3/uL (130-400); RED BLOOD COUNT 4.14 10*6/uL (4.10-5.10); RED CELL DISTRI WIDTH 13.4 % (0-14.5); WHITE BLOOD COUNT 10.5 10*3/uL (4.8-10.8)
[2020-03-18 06:27] LABS: ALBUMIN 3.4 gm/dl (3.1-4.5); CREATININE 1.16 mg/dL (0.55-1.02); POTASSIUM 4.7 mmol/L (3.5-5.1)
[2020-03-18 06:34] LABS: FREE T4 0.96 ng/dl (0.76-1.46); THYROID STIM HORMONE (HS) 1.91 uIU/ml (0.358-4.75)
--- NOTE | 2020-03-18 07:33 | NUR ---
PHYSICAL THERAPY Screen and PT eval received will follow thank you Pebbles Valderrama PT
[2020-03-18 07:48] LABS: VITAMIN D, 25-HYDROXY 51.9 ng/mL (30-100)
--- NOTE | 2020-03-18 07:54 | NUR ---
Occupational therapy order and nursing screen received. Will follow up with patient for completion of an OT evaluation. Thank you. Kristine Isaacs, OTR/L
[2020-03-18 08:00] VITALS: BP 120/57
--- NOTE | 2020-03-18 08:13 | NUR ---
MEDICATED WITH PRN IV DILAUDID FOR RIGHT HIP SCIATICA PAIN.
[2020-03-18] MEDS ORDERED: Imdur SA60 MG PO (08:45)
--- NOTE | 2020-03-18 08:46 | NUR ---
PATIENT STATES TAKES ONLY ONE 60MG TAB OF IMDUR DAILY, NOT TWO. MED REC CORRECTED, WILL NOTIFY PHYSICIAN, PATIENT TOOK THE ONE TAB OF 60MG THIS MORNING.
--- NOTE | 2020-03-18 08:47 | NUR ---
PRN IV DILAUDID EFFECTIVE, PER PATIENT.
--- NOTE | 2020-03-18 09:03 | NUR ---
PHYSICAL THERAPY Physical Therapy evaluation completed on 5E with full evaluation to follow. Moderate complexity PT evaluation per chart review and evaluation, [address]. Recommend physical therapy per plan of care and Home Health vs Outpatient PT upon discharge. Thank you for this referral. Arleen Arechiga,PT,DPT
--- NOTE | 2020-03-18 11:10 | NUR ---
Occupational Therapy evaluation completed on 5E with full evaluation to follow. Recommend occupational therapy per plan of care and SNF upon discharge. Thank you for this referral. Jocelin Amezquita OTR/L
[2020-03-18 12:00] VITALS: BP 113/56
--- NOTE | 2020-03-18 14:06 | NUR ---
Noodle Press Operator in to talk to patient. Patient states lives at HOME with . There are FEW steps in the home. Physician: PARAMJIT PARHAM Pharmacy: [facility] AND [facility]IL ORDER Home health services: NONE Patient's level of ADLs: INDEPENDENT Patient has working utilities: YES DME: WALKER AND SHOWER CHAIR IF NEEDED Follow-up physician's appointment after d/c: WILL BE MADE BY HOSPITALIST NURSE DIRECTOR ON DISCHARGE Does patient want to access PORTAL?: NO Discharge plan PT LIVES AT HOME WITH HER AND IS INDEPENDENT IN HIS CARE. TALKED WITH PT ABOUT HOME HEALTH AND PT AT HOME. PT STATES SHE WILL THINK ABOUT IT AND LET ME KNOW. DENIES ANY OTHER NEEDS AT THIS TIME. WILL CONTINUE TO FOLLOW. STATES HER WILL TAKE HER HOME . ISELA PEREZ
--- NOTE | 2020-03-18 14:41 | NUR ---
MEDICATED WITH PRN IV DILAUDID FOR RIGHT HIP/LEG PAIN.
--- NOTE | 2020-03-18 14:47 | NUR ---
MEDICATED WITH PRN IV ZOFRAN FOR NAUSEA ASSOCIATED WITH IV DILAUDID ADMINISTRATION.
--- NOTE | 2020-03-18 15:43 | NUR ---
PRN IV DILAUDID AND ZOFRAN BOTH EFFECTIVE, PER PATIENT.
[2020-03-18 16:00] VITALS: BP 114/53
--- NOTE | 2020-03-18 18:34 | NUR ---
ADMINISTERED IV TORADOL 15MG X 1 ORDERED FOR SEVERE RT HIP AND LEG PAIN.
--- NOTE | 2020-03-18 19:34 | NUR ---
MEDICATED WITH PRN IV DILAUDID FOR RIGHT HIP AND LEG PAIN; IV TORADOL WAS NOT EFFECTIVE, PER PATIENT.
[2020-03-18 20:00] VITALS: BP 134/52
[2020-03-19] VITALS: BP 116/59
--- NOTE | 2020-03-19 05:07 | NUR ---
PATIENT MEDICATED WITH DILAUDID FOR COMPLAINTS OF SEVERE PAIN. CRYING D/T PAIN BEING SO BAD. WILL MONITOR FOR EFFECTIVENESS.
--- NOTE | 2020-03-19 05:12 | NUR ---
MEDICATED WITH ZOFRAN ALSO D/T TAKING PAIN MEDICATION ON AN EMPTY STOMACH AND NOT WANTING TO GET SICK. WILL MONITOR FOR EFFECTIVENESS.
--- NOTE | 2020-03-19 05:50 | NUR ---
DILAUDID SLIGHTLY EFFECTIVE. STATED IT TOOK THE EDGE OFF BUT IS STILL HAVING BAD PAIN. ZOFRAN EFFECTIVE FOR NAUSEA. ASSISTED PATIENT TO BEDSIDE COMMODE. WILL CONTINUE TO MONITOR.
[2020-03-19 08:00] VITALS: BP 150/74
--- NOTE | 2020-03-19 09:17 | NUR ---
MEDICATED WITH PRN IV DILAUDID FOR RT HIP SCIATICA PAIN.
--- NOTE | 2020-03-19 09:36 | NUR ---
PRN IV DILAUDID BRIEFLY EFFECTIVE, PER PATIENT. STILL HAVING PAIN WITH MOVEMENT.I
--- NOTE | 2020-03-19 10:40 | NUR ---
PHYSICAL THERAPY Patient seen this am 1:1 for therapy visit and was supine in bed upon therapist arrival. Patient identified by name / and reports no pain at rest since just receiving her pain med recently. OT therapeutic assistant was also present this morning for observation as patient transfers supine to sit EOB with MIN A x 1, immediately reporting 10/10 R posterior hip pain. Patient instructed to shift weight to L side for pain releif, however demonstrated severe facial grimmance and discomfort. Patient instructed to perform sit to stand, transfering MOD A with use of wh walker standing support. Patient still reports increased c/o of R hip pain that runs down back of leg to foot and needed v/c to modify standing posture for pain relief. Patient also instructed on relaxation breathing technique which seemed to help as patient tolerated approx 70 seconds static stand. Patient seemed more relaxed following v/c for MAX encoouragment tolerating static EOB sit x several minutes with no pain c/o. Patient performed second sit to stand, use of wh walker, MIN A and tolerated approx 1 minute static stand, including side step to R for pre bed positioning before returning to supine in bed. Patient remained in bed with call light, tray table, telephone and bed alarm for safety. Will continue per POC as tolerated, total treatment time 16 minutes. Troy Barton, CRIB CLERK
--- NOTE | 2020-03-19 10:50 | NUR ---
OT NOTE Pt seen this date 1:1 for 20 min therapy session. Upon arrival pt supine in bed favoring R side w bed alarm activated. Pt identified by name and and had c/o 6-7/10 pain in R hip on a 0-10 pain scale and a burning sensation down her R leg. Pt required Max verbal cues for encouragement and education provided for pain mgmt techniques including repositioning, stretching and breathing techniques w good effort and success throughout treatment. Pt presented w facial grimaces, gasps and tears from pain and anxiety throughout session resulting in encouragement and support provided to calm pt w success. Bed mobility completed from supine in bed to seated at EOB w Mod A to manage pain. Stand completed from EOB w ww and CGA where she stood for aprox 30 sec before returning to seated at EOB w ww and CGA d/t increase in pain. Pt sat at EOB w SBA for aprox 5 min before standing from EOB w ww and CGA. Pt stood for 70 sec w two side steps to the right before returning to seated at EOB d/t pain w ww and CGA. Pt doffed/donned B socks utilizing compensatory technique of bringing leg up over knee and pacing to manage pain w SBA and decreased signs of distress. Pt returned to supine in bed w SBA and stated she was not experiencing any pain. At end of session pt supine in bed w bed alarm activated, call light in reach and bedside table in place. Continue w current D/C to SNF. Constantine Flores/MARVA Roblero/Candice
[2020-03-19 12:00] VITALS: BP 122/55
--- NOTE | 2020-03-19 14:18 | NUR ---
PATIENT SLEEPING WITH NO S/S PAIN; SCHEDULED FLEXERIL EFFECTIVE.
[2020-03-19 16:00] VITALS: BP 95/58
--- NOTE | 2020-03-19 16:16 | NUR ---
MEDICATED WITH PRN IV ZOFRAN FOR NAUSEA ASSOCIATED WITH ADMINISTRATION OF PAIN MEDICATION.
--- NOTE | 2020-03-19 16:17 | NUR ---
MEDICATED WITH PRN IV DILAUDID FOR RIGHT HIP SCIATICA PAIN.
--- NOTE | 2020-03-19 16:59 | NUR ---
PRN IV ZOFRAN AND DILAUDID EFFECTIVE, PER PATIENT.
[2020-03-19 20:00] VITALS: BP 113/52
--- NOTE | 2020-03-19 20:33 | NUR ---
PT SLEEPING AT THIS TIME, RESPS EASY AND UNLABORED, LEFT UNDISTURBED.
--- NOTE | 2020-03-19 21:52 | NUR ---
DILAUDID GIVEN PER PT REQUEST FOR PAIN TO RT HIP/LEG, SCIATIC PAIN. WILL MONITOR
--- NOTE | 2020-03-19 22:50 | NUR ---
DILAUDID APPEARS EFFECTIVE, PT IS RESTING ON LT SIDE, RESPS EASY AND UNLABORED, CALL LIGHT IN REACH
[2020-03-20] VITALS: BP 142/71
--- NOTE | 2020-03-20 02:27 | NUR ---
DILAUDID GIVEN PER PT REQUEST FOR PAIN, ASSIST TO BSC AT THIS TIME. CALL LIGHT IN REACH
--- NOTE | 2020-03-20 03:06 | NUR ---
PATIENT VERBALIZES DILAUDID EFFECTIVE " IT TAKES THE EDGE OFF"
--- NOTE | 2020-03-20 06:45 | NUR ---
DILAUDID PROVIDED PER PT REQUEST FOR PAIN. PT TEARFUL, RUBBING RT HIP. DAYLIGHT SHIFT TO MONITOR EFFECTIVENESS.
--- NOTE | 2020-03-20 07:39 | NUR ---
PATIENT STATES PAIN MED IS EFFECTIVE. RESTING ON LEFT SIDE. WILL MONITOR. CALL LIGHT WITHIN REACH.
[2020-03-20 08:00] VITALS: BP 132/63
--- NOTE | 2020-03-20 08:45 | NUR ---
PHYSICAL THERAPY Patient seen this am 1;1 for therapy visit and was supine in bed upon therapist arrival. Patient identified by name / and reports 6/10 R hip pain. OT executive administrative assistant was present this morning for obseration this session as patient transfers supine to sit EOB with CGA x 1. Patient tolerated several minutes static EOB sit demonstrating only mild R hip discomfort, then completed several sit to stand transfers, use of wh walker standing support, CGA, while tolerating approx 1 minute static stand each trial. Patient also able to complete SPT to BS, MIN/CGA, requiring v/c for improved safe step sequence. Patient reports slight increase in pain c/o to 8/10 prior to return to supine in bed. Patient Independent with bed mobility and was able to demonstrate position changes for pain relief with such position being R leg crossed above L knee. Patient instructed on R side Piriformis stretch and tolerated ex reporting no new c/o's, but decreased tightness in posterior hip area. Patient remained in bed with call light,tray table and telephone. Will continue per POC as tolerated, total treatment time 16 minutes. Troy Barton, BIOLOGICAL SCIENCE TECHNICIAN
--- NOTE | 2020-03-20 09:09 | NUR ---
OT NOTE Pt seen this date 1:1 for 25 min therapy session. Upon arrival pt supine in bed and identified by name and . She had c/o 6/10 pain in her R hip and required Max encouragement and pain management techniques including therapeutic breathing throughout session w good success. Bed mobility completed from supine in bed to seated at EOB w SBA and minimal facial grimaces indicating pain. Pt sat EOB for aprox 2 min w SBA before standing from EOB w ww and CGA where she stood for 1 min w CGA before returning to seated at EOB w ww and CGA d/t increase in pain which pt rated at a 8/10. During rest break pt was educated on technique to complete stand pivot transfer as well as minimize pain w good carry over and reported pain had subsided. Sit to stand completed from bed level w ww and CGA followed by stand pivot transfer to bedside commode w ww and CGA and constant verbal cues provided for encouragement and technique w good followthrough. Pt transferred to seated on bedside commode w good hand placement, technique and CGA. Pt sat on bedside commode for aprox 30 sec w c/o discomfort resulting in stand pivot transfer w ww and CGA back to seated at EOB w good technique and carry over. Noted pt demonstrated fewer subjective symptoms of pain this date. Seated at EOB pt donned pants utilizing compensatory technique of bringing foot up over knee w Min A for clothing mgmt. Education provided on technique to reduce pain for standing while completing clothing mgmt w fair carry over. Sit to stand completed w ww and CGA to bring waistband of pants up over hips w 3 sudden returns to seated at EOB d/t increase in pain w CGA. She then returned to supine in bed w SBA and was educated on stretching for R hip pain and demonstrated good understanding of technique. At end of session pt supine in bed w call light in reach and bedside table in place. Continue w current D/C to SNF. Constantine Flores/MARVA Roblero/Candice
--- NOTE | 2020-03-20 10:05 | NUR ---
TYLENOL GIVEN FOR SHOOTING BACK PAIN. FOLLOWING PT/OT. WILL MONITOR. CALL LIGHT WITHIN REACH.
--- NOTE | 2020-03-20 10:05 | NUR ---
TYLENOL GIVEN FOR LOWER BACK PAIN, WILL MONITOR EFFECTIVENESS.
--- NOTE | 2020-03-20 10:45 | NUR ---
TYLENOL INEFFECTIVE. WILL GIVE DILAUDID. SEE MAR. CALL LIGHT WITHIN REACH.
--- NOTE | 2020-03-20 11:50 | NUR ---
WALKED IN TO GIVE PT DILAUDID FOR COMPLAINTS OF PAIN. FOUND PT LAYING MORE TO LEFT SIDE AND READING LUNCH MENU. NO OBVIOUS COMPLAINTS OF PAIN AT THIS TIME. PT THEN BEGAN TO WINCE AND MOVE IF IN PAIN/RESTLESS. STATED PAIN IS NOW 10/10. TYLENOL WAS INEFFECTIVE. CALL LIGHT IN REACH. WILL MONITOR. DILUAID GIVEN, SEE MAR.
--- NOTE | 2020-03-20 11:50 | NUR ---
DILAUDID GIVEN FOR SHOOTING BACK PAIN RATED 10 OF 10. WILL MONITOR. CALL LIGHT WITHIN REACH.
[2020-03-20 12:00] VITALS: BP 126/68
--- NOTE | 2020-03-20 12:35 | NUR ---
DILAUDID EFFECTIVE PER PATIENT. CALL LIGHT WITHIN REACH.
--- NOTE | 2020-03-20 14:17 | NUR ---
RECIEVED A MESSAGE FROM NURSING THAT PT WAS CONSIDERING A SNF BEFORE GOING HOME, WENT TO ROOM AND SPOKE WITH PT WHO STATES SHE REALLY WANTS TO GO HOME BUT TO TALK WITH . CALLED AT HOME AND HE STATES HE IS AFAID OF COVID AND WOULD RATHER TAKE PT HOME WITH HOME HEALTH. INFORMED MARIO HOSPITALIST NURSE DIRECTOR THAT I NEEDED HH ORDER. RN HOPE INFORMED THAT WANTS PT TO GO HOME WITH HH.
--- NOTE | 2020-03-20 14:36 | NUR ---
COVID 19 SWABBED AT THIS TIME. TOLERATED FAIR. RESULTS PENDING FOR SNF PLACEMENT.
--- NOTE | 2020-03-20 15:29 | NUR ---
PHYSICAL THERAPY CO-SIGN I approve of the Physical Therapy notes written above. Pebbles Valderrama PT
--- NOTE | 2020-03-20 15:43 | NUR ---
OCCUPATIONAL THERAPY CO-SIGN I approve of the Occupational Therapy notes written above. HELIO OCHOA, OTR/L
[2020-03-20 16:00] VITALS: BP 127/80
--- NOTE | 2020-03-20 16:43 | NUR ---
BSG 377. DR. OSUNA NOTIFIED PER PROTOCOL. ORDERED TO FOLLOW SLIDING SCALE.
--- NOTE | 2020-03-20 16:57 | NUR ---
DILAUDID GIVEN FOR RADIATING PAIN FROM BACK TO RIGHT LEG. WILL MONITOR. CALL LIGHT WITHIN REACH.
--- NOTE | 2020-03-20 17:42 | NUR ---
PATIENT RESTING ON LEFT SIDE. NO SIGNS OR SYMPTOMS OF DISTRESS. RESPERATIONS AT 16 PER MINUTE. WILL CONTINUE TO MONITOR. CALL LIGHT WITHIN REACH.
--- NOTE | 2020-03-20 19:40 | NUR ---
ASSESSMENT COMPLETE. PT COMPLAINS OF RIGHT LEG PAIN THAT RADIATES INTO HER LOWER BACK. SHE STATES THAT SHE IS READY FOR HER DILAUDID WHENEVER IT CAN BE GIVEN. NO OTHER COMPLAINTS AT THIS TIME. CALL LIGHT WITHIN REACH, WILL CONTINUE TO MONITOR
[2020-03-20 20:00] VITALS: BP 139/75
--- NOTE | 2020-03-20 21:28 | NUR ---
PRN DILAUDID GIVEN FOR COMPLAINTS OF PAIN IN LEG RADIATING TO BACK. WILL MONITOR FOR EFFECTIVENESS
--- NOTE | 2020-03-20 22:00 | NUR ---
IN PT ROOM TO SEE IF PAIN MEDICATION IS EFFECTIVE AND PT IS SLEEPING. WILL CONTINUE TO MONITOR
[2020-03-21] VITALS: BP 112/53
--- NOTE | 2020-03-21 04:23 | NUR ---
24 HR chart check completed.
--- NOTE | 2020-03-21 04:51 | NUR ---
Patient sleeping. Respirations relaxed and easy. [place] LOCKED BED LOWEST POSITION. CALL LIGHT WITHIN REACH NEDA MUÑOZ
--- NOTE | 2020-03-21 04:53 | NUR ---
PRN DILAUDID IV GIVEN FOR COMPLAINTS OF RIGHT SIDED LEG AND BACK PAIN. WILL MONITOR FOR EFFECTIVENESS
--- NOTE | 2020-03-21 05:50 | NUR ---
PT STATES DIANE EFFECTIVE, WILL CONTINUE TO MONITOR
[2020-03-21 06:42] LABS: BASO % 0.1 % (0.0-1.0); HEMATOCRIT 38.6 % (37.0-47.0); LYMPH # 0.7 10*3/uL (1.3-4.4); LYMPH % 6.8 % (27.0-41.0); MEAN CELL VOLUME 95.1 fl (81.0-99.0); MEAN CORPUSCULAR HGB CONC 32.6 g/dl (33.0-37.0); MEAN PLATELET VOLUME 9.5 fl (9.6-12.3); MONO # 0.3 10*3/uL (0.1-1.0); MONO % 2.9 % (3.0-9.0); NEUT # 9.7 10*3/uL (2.3-7.9); NEUT % 89.3 % (47.0-73.0); PLATELET COUNT AUTOMATED 216 10*3/uL (130-400); RED BLOOD COUNT 4.06 10*6/uL (4.10-5.10); RED CELL DISTRI WIDTH 13.4 % (0-14.5); WHITE BLOOD COUNT 10.9 10*3/uL (4.8-10.8)
[2020-03-21 07:03] LABS: CREATININE 1.17 mg/dL (0.55-1.02); POTASSIUM 5.1 mmol/L (3.5-5.1)
[2020-03-21 08:00] VITALS: BP 118/61
--- NOTE | 2020-03-21 08:03 | NUR ---
Shift chart check completed.
--- NOTE | 2020-03-21 10:27 | NUR ---
PT RATED PAIN 8/10, DILAUDID GIVEN. WILL MONITOR FOR PAIN. PT ASSISTED TO BSC WITH ASSIST OF 1, PT STATE PAIN INCREASES WITH MOVEMENT.
--- NOTE | 2020-03-21 11:10 | NUR ---
DILAUDID SLIGHTLY EFFECTIVE.
[2020-03-21 12:00] VITALS: BP 126/59
--- NOTE | 2020-03-21 13:35 | NUR ---
PT RESTING,NO NEEDS STATED AT THIS TIME. PAIN MEDICATION EFFECTIVE AT THIS TIME
--- NOTE | 2020-03-21 14:00 | NUR ---
PT SLEEPING, NO DISTRESS NOTED
--- NOTE | 2020-03-21 15:08 | NUR ---
PT STATES PAIN IN LOWER LEG STILL "THERE", AT THIS TIME DOES NOT REQUEST MORE PAIN MEDICATION. WILL CONTINUE TO MONITOR
[2020-03-21 16:00] VITALS: BP 130/74
--- NOTE | 2020-03-21 17:02 | NUR ---
PT STATES PAIN IN LOWER EXT/BUTTOCKS/BACK, 10/10, DILAUDID GIVEN.
--- NOTE | 2020-03-21 19:52 | NUR ---
ASSESSMENT COMPLETE AT THIS TIME WITH NO INCIDENCE. RESPIRATIONS ARE RELAXED AND REGULAR. PT STATES SHE HAS NO NEEDS AT THIS TIME. CALL LIGHT WITHIN REACH, WILL CONTINUE TO MONITOR
[2020-03-21 20:00] VITALS: BP 98/50
--- NOTE | 2020-03-21 21:32 | NUR ---
CALLED DR OSUNA DUE TO BS 447, HE STATES HE WILL LOOK AT HER CHART AND CALL ME BACK WITH WHAT TO DO
--- NOTE | 2020-03-21 21:35 | NUR ---
CALLED AND STATES GIVE INSULIN ACCRODING TO SLIDING SCALE
[2020-03-22] VITALS: BP 99/70
--- NOTE | 2020-03-22 02:04 | NUR ---
24 HR chart check completed.
--- NOTE | 2020-03-22 04:14 | NUR ---
Patient sleeping. Respirations relaxed and easy. WHEELS LOCKED NEDA MUÑOZ
[2020-03-22 08:00] VITALS: BP 136/65
--- NOTE | 2020-03-22 08:53 | NUR ---
K PAD APPLIED TO RIGHT LOWER BACK/BUTTOCK PER ORDERS. WILL MONITOR
[2020-03-22 12:00] VITALS: BP 114/69
--- NOTE | 2020-03-22 14:57 | NUR ---
Patient resting quietly, pain improving per pt. Respirations easy and regular. Vital signs stable. No overt distress. CRISTINE BLAKE R
[2020-03-22 16:00] VITALS: BP 120/66
--- NOTE | 2020-03-22 19:40 | NUR ---
ASSESSMENT COMPLETE WITH NO INCIDENCE. PT STATES THAT SHE HAS NOT HAD A BOWEL MOVEMENT FOR SIX DAYS, WE TALKED ABOUT HOW IT IS IMPORTANT FOR HER TO BE UP AND MOVING AROUND IN HOPES TO MOVE HER BOWELS. CALL LIGHT WITHIN REACH, WILL CONTINUE TO MONITOR THE PATIENT
[2020-03-22 20:00] VITALS: BP 111/63
[2020-03-23] VITALS: BP 137/65
--- NOTE | 2020-03-23 03:45 | NUR ---
24 HR chart check completed.
[2020-03-23 06:35] LABS: BASO % 0.1 % (0.0-1.0); EOS # 0.2 10*3/uL (0.0-0.4); EOS % 1.1 % (1.0-4.0); HEMATOCRIT 39.2 % (37.0-47.0); LYMPH # 4.4 10*3/uL (1.3-4.4); LYMPH % 29.7 % (27.0-41.0); MEAN CELL VOLUME 94.7 fl (81.0-99.0); MEAN CORPUSCULAR HGB 31.6 pg (27.0-31.0); MEAN CORPUSCULAR HGB CONC 33.4 g/dl (33.0-37.0); MEAN PLATELET VOLUME 9.2 fl (9.6-12.3); MONO # 1.3 10*3/uL (0.1-1.0); MONO % 8.8 % (3.0-9.0); NEUT # 8.8 10*3/uL (2.3-7.9); NEUT % 59.6 % (47.0-73.0); PLATELET COUNT AUTOMATED 207 10*3/uL (130-400); RED BLOOD COUNT 4.14 10*6/uL (4.10-5.10); RED CELL DISTRI WIDTH 13.6 % (0-14.5); WHITE BLOOD COUNT 14.7 10*3/uL (4.8-10.8)
[2020-03-23 06:49] LABS: ALBUMIN 2.9 gm/dl (3.1-4.5); CREATININE 1.13 mg/dL (0.55-1.02); POTASSIUM 4.8 mmol/L (3.5-5.1); TOTAL PROTEIN 6.1 gm/dL (6.4-8.2)
[2020-03-23 08:00] VITALS: BP 109/54
--- NOTE | 2020-03-23 08:11 | NUR ---
24 HR chart check completed.
--- NOTE | 2020-03-23 08:40 | NUR ---
PHYSICAL THERAPY Patient seen this am 1;1 for therapy visit and was supine in bed upon therapist arrival. Patient identified by name / and reports 8/10 R hip pain. OT chef's assistant was also present for observation this session as patient transfers supine to sit EOB with CGA x 1. Patient needed a minute or so of static EOB sit to collect herself, including weight shifting to alleviate R hip pain. Patient completed sit to stand transfer, MIN A, demonstrating initial slow rise and use of wh walker standing support. Patient amublated 8' x 1 to bathroom, then addtional 15'x 1 to bedside chair, use of wh walker, CGA, demonstrating "step to" augusto, decreased stride and antalgic gait pattern. Patient also fatigues quickly and remained in bedside chair reporting decreased c/o R hip pain, 2/10. Patient remained with call light, tray table, telphone and body alarm for safety. Will continue per POC as tolerated, total treatment time 16 minutes. Troy Barton, EAR MACHINE OPERATOR
--- NOTE | 2020-03-23 08:56 | NUR ---
OT NOTE Pt seen this date 1:1 for 25 min therapy session. Upon arrival pt supine in bed and had c/o 8/10 pain in her R hip on a 0-10 pain scale and was agreeable to therapy. Pt identified by name and . Verbal encouragement offered throughout treatment to increase participation and reduce signs of anxiety. Supine to sit transfer completed to EOB w SBA. She then stood from bed level w ww and CGA. Functional mobility completed into bathroom w ww and CGA and verbal cues provided for ww sequencing w good carryover. Clothing mgmt completed standing w CGA prior to transferring to standard commode w ww and CGA. Toileting completed w supervision. Stand completed from standard commode w CGA and increased symptoms of pain resulting in pt leaning over ww and poor safety awareness w verbal/tactile cues provided to correct posture and ww safety. While transferring off commode and completing clothing management pt presented with impulsive behaviors increasing risk of falls, pt continued with poor carry over. Pt requested for assist to complete toilet hygine and was educated on compensatory technique which pt was unwilling to attempt resulting in Max A to complete toilet hygine. Clothing mgmt completed w Max A and ww d/t pts poor safety awareness and not correcting posture when cues were provided. Pt ambulated w ww and CGA around bed to bedside chair w loss of balance x2 one to the R and one L requiring Min A to correct. Ww education provided to increase safety d/t poor safety awareness and continued impulsive behaviors w poor carry over. Transfer completed to seated in bedside chair w ww and Min A w verbal cues provided for transfer safety d/t impulsiveness to transfer to chair prior to reaching transfer surface w poor transfer technique. Once seated pt rated pain in RLE at a 2/10 on a pain scale of 0-10. At end of session pt seated in bedside chair w body alarm activated, call light in reach and bedside table in place. Continue w current D/C to SNF. Constantine Flores/MARVA Roblero/Candice
--- NOTE | 2020-03-23 09:43 | NUR ---
ELECTRONICS ENGINEERING TECHNICIAN SENT REFERRAL TO [facility].
[2020-03-23 12:00] VITALS: BP 103/48
--- NOTE | 2020-03-23 14:13 | NUR ---
HUMAN RESOURCES SPECIALIST SPOKE WITH PATIENT. PATIENT STATED SHE WANTED TO GO HOME BUT TOLD THIS HUMAN RESOURCES SPECIALIST TO REACH OUT TO HER . HUMAN RESOURCES SPECIALIST SPOKE WITH THE PATIENTS ABOUT HOME HEALTH VS SNF. HUMAN RESOURCES SPECIALIST EXPLAINED BOTH THROUGHLY. PATIENTS STATED THAT HE WOULD LIKE HER HOME. PATIENTS STATED THE PATIENT HAS NOT HAD A BOWEL MOVEMENT IN 6 DAYS AND WOULD LIKE HER TO MOVE HER BOWELS BEFORE COMING HOME. HE STATED HE HAD PREVIOUSLY USED A HOME HEALTH AGENCY IN THE PAST AND WOULD LOOK TO SEE WHAT COMPANY IT WAS AND WILL LET HIS KNOW TO LET US KNOW. KOURTNEY INFORMED ROUGE MIXER.
--- NOTE | 2020-03-23 14:51 | NUR ---
CALLED AND NOTIFIED MANAGER BUSINESS CONTINUITY OF HHC CHOICE. THE DECIDED [facility].
--- NOTE | 2020-03-23 14:53 | NUR ---
ORE ROASTER WAS NOTIFIED THE PATIENT WOULD LIKE TO BE REFERRED TO [facility]. ORE ROASTER WILL FAX REFERRAL TO [facility].
--- NOTE | 2020-03-23 15:01 | NUR ---
CUSTOMER CARE AGENT FAXED REFERRAL TO [facility], INCLUDING THE [facility]. DIGITAL MEDIA ASSOCIATE HAS BEEN NOTIFIED.
--- NOTE | 2020-03-23 15:20 | NUR ---
PT HAD A LARGE BM AFTER THE SUPPOSITORY WA GIVEN. PT IS FEELING BETTER. RADHA SHELDON, WAS NOTIFIED.
[2020-03-23 16:00] VITALS: BP 127/61
[2020-03-23] MEDS ORDERED: PREDNISONE10 MG PO (16:00)
[2020-03-23] MEDS ORDERED: TRAMADOL HCL50 MG PO (16:00)
[2020-03-23] MEDS ORDERED: IMDUR SA60 M1 PO (16:00)
[2020-03-23] MEDS ORDERED: NEURONTIN300 MG PO ×2 (16:00→16:04)
[2020-03-23] MEDS ORDERED: GLIMEPIRIDE4 M1 PO (16:00)
[2020-03-23] MEDS ORDERED: CYCLOBENZAPRINE10 MG PO (16:00)
--- NOTE | 2020-03-23 16:50 | NUR ---
OCCUPATIONAL THERAPY CO-SIGN I approve of the Occupational Therapy notes written above. HELIO OCHOA, OTR/L
--- NOTE | 2020-03-23 18:46 | NUR ---
Discharge instructions reviewed with patient/family. Patient receptive and verbalizes understanding. Follow-up care arranged. Written instructions given to patient/family. IV WAS REMOVED AND PAPERWORK WAS GIVEN TO PATIENT. HE HAD NO QUESTIONS AT THIS TIME. LAURA VALERIO
--- NOTE | 2020-03-24 07:25 | NUR ---
PHYSICAL THERAPY CO-SIGN I approve of the Physical Therapy notes written above. Pebbles Valderrama PT
--- NOTE | 2020-03-24 07:26 | NUR ---
PHYSICAL THERAPY CO-SIGN I approve of the Physical Therapy notes written above. Pebbles Valderrama PT
== END 2020-03-23 18:46 | disposition home health service (06) | DRG 562 ==
LOC: ED 10:07 → EDHOLD 13:03 → 5E 13:03
PROVIDERS: Emergency Medicine; Internal Medicine; Registered Nurse; Student in an Organized Health Care Education/Training Program; ADMIT Internal Medicine
DX: S39.012A Strain of muscle, fascia and tendon of lower back, initial encounter (principal); N17.0 Acute kidney failure with tubular necrosis; M51.26 Other intervertebral disc displacement, lumbar region; E78.5 Hyperlipidemia, unspecified; M10.9 Gout, unspecified; N18.3 Chronic kidney disease, stage 3 (moderate); E11.22 Type 2 diabetes mellitus with diabetic chronic kidney disease; I12.9 Hypertensive chronic kidney disease with stage 1 through stage 4 chronic kidney disease, or unspecified chronic kidney disease; K21.9 Gastro-esophageal reflux disease without esophagitis; I25.10 Atherosclerotic heart disease of native coronary artery without angina pectoris; E11.65 Type 2 diabetes mellitus with hyperglycemia; M47.896 Other spondylosis, lumbar region; K57.90 Diverticulosis of intestine, part unspecified, without perforation or abscess without bleeding; G40.909 Epilepsy, unspecified, not intractable, without status epilepticus; Z03.818 Encounter for observation for suspected exposure to other biological agents ruled out; X58.XXXA Exposure to other specified factors, initial encounter; Y93.89 Activity, other specified; Y92.89 Other specified places as the place of occurrence of the external cause; Y99.8 Other external cause status; Z95.5 Presence of coronary angioplasty implant and graft; Z82.49 Family history of ischemic heart disease and other diseases of the circulatory system; Z90.49 Acquired absence of other specified parts of digestive tract; Z82.3 Family history of stroke; Z88.1 Allergy status to other antibiotic agents; Z88.5 Allergy status to narcotic agent; Z88.8 Allergy status to other drugs, medicaments and biological substances; Z79.82 Long term (current) use of aspirin; Z79.899 Other long term (current) drug therapy; Z79.84 Long term (current) use of oral hypoglycemic drugs; Z98.41 Cataract extraction status, right eye

== ENCOUNTER 2020-12-08 15:15 | Emergency (ER) | payer MEDICARE ==
[~2020-12-08] VITALS: Ht 154.9 cm; Wt 95.7 kg
[~2020-12-08 15:15] MED LIST changes: +GLIMEPIRIDE4 M1 PO; +Imdur SA60 MG PO; +NEURONTIN300 MG PO; +PEPCID AC20 MG PO; +TRAMADOL HCL50 MG PO
[2020-12-08 16:27] LABS: BILIRUBIN Negative (Negative); BLOOD Trace-Lysed (Negative); CLARITY Cloudy (Clear); COLOR Dark Yellow (Yellow); GLUCOSE Negative (Negative); KETONE Trace (Negative); LEUKO ESTERASE 2+ (Negative); NITRITE Negative (Negative); SPECIFIC GRAVITY >= 1.030 (1.001-1.030)
[2020-12-08 16:53] LABS: BACTERIA 2+; EPITHELIAL CELLS 31-40; WBC 16-20 wbc/hpf (0-5)
[2020-12-08] MEDS ORDERED: PYRIDIUM200 M1 PO (17:01)
[2020-12-08] MEDS ORDERED: MACROBID100 M1 PO (17:01)
== END 2020-12-08 18:35 | disposition home or self-care (01) ==
LOC: ED 15:15
PROVIDERS: Emergency Medicine
DX: N39.0 Urinary tract infection, site not specified (principal); E11.9 Type 2 diabetes mellitus without complications; I10 Essential (primary) hypertension; I25.10 Atherosclerotic heart disease of native coronary artery without angina pectoris; K21.9 Gastro-esophageal reflux disease without esophagitis; F41.9 Anxiety disorder, unspecified; Z88.8 Allergy status to other drugs, medicaments and biological substances; Z88.6 Allergy status to analgesic agent; Z79.899 Other long term (current) drug therapy; Z79.84 Long term (current) use of oral hypoglycemic drugs; Z95.818 Presence of other cardiac implants and grafts; Z90.49 Acquired absence of other specified parts of digestive tract; Z98.890 Other specified postprocedural states

== ENCOUNTER → 2021-06-11 | Outpatient (CLI) | payer MEDICARE ==
[~2021-06-11] MED LIST changes: +PYRIDIUM200 M1 PO
== END | disposition home or self-care (01) ==
LOC: COVID19 16:24
PROVIDERS: ATTEND Internal Medicine
DX: U07.1 COVID-19 (principal)

== ENCOUNTER → 2021-09-02 | Outpatient (CLI) | payer MEDICARE | END | disposition home or self-care (01) | LOC: RESCLI 00:55 | PROVIDERS: ATTEND Emergency Medicine | DX: E11.9 Type 2 diabetes mellitus without complications (principal); I10 Essential (primary) hypertension; G31.84 Mild cognitive impairment of uncertain or unknown etiology; I25.10 Atherosclerotic heart disease of native coronary artery without angina pectoris; E55.9 Vitamin D deficiency, unspecified; M10.9 Gout, unspecified; K21.9 Gastro-esophageal reflux disease without esophagitis; E78.2 Mixed hyperlipidemia; N95.0 Postmenopausal bleeding; Z79.84 Long term (current) use of oral hypoglycemic drugs; Z79.899 Other long term (current) drug therapy ==

== ENCOUNTER → 2021-10-20 | Outpatient (CLI) | payer MEDICARE ==
[2021-10-20 13:35] LABS: BASO # 0.1 10*3/uL (0.0-0.1); BASO % 1.2 % (0.0-1.0); BILIRUBIN Negative (Negative); BLOOD Trace-Intact (Negative); CLARITY Clear (Clear); COLOR Yellow (Yellow); EOS # 0.8 10*3/uL (0.0-0.4); EOS % 9.7 % (1.0-4.0); GLUCOSE 3+ (Negative); HEMATOCRIT 41.3 % (37.0-47.0); KETONE Negative (Negative); LEUKO ESTERASE 1+ (Negative); LYMPH # 2.3 10*3/uL (1.3-4.4); LYMPH % 27.8 % (27.0-41.0); MEAN CELL VOLUME 94.3 fl (81.0-99.0); MEAN CORPUSCULAR HGB 30.8 pg (27.0-31.0); MEAN CORPUSCULAR HGB CONC 32.7 g/dl (33.0-37.0); MEAN PLATELET VOLUME 9.2 fl (9.6-12.3); MONO # 0.7 10*3/uL (0.1-1.0); MONO % 7.9 % (3.0-9.0); NEUT # 4.4 10*3/uL (2.3-7.9); NEUT % 53.2 % (47.0-73.0); NITRITE Negative (Negative); PLATELET COUNT AUTOMATED 232 10*3/uL (130-400); RED BLOOD COUNT 4.38 10*6/uL (4.10-5.10); RED CELL DISTRI WIDTH 13.7 % (0-14.5); SPECIFIC GRAVITY >= 1.030 (1.001-1.030); UROBILINOGEN 0.2 E.U./dl (0.0-1.0); WHITE BLOOD COUNT 8.3 10*3/uL (4.8-10.8)
[2021-10-20 13:43] LABS: WBC 31-40 wbc/hpf (0-5); YEAST TRACE
[2021-10-20 13:53] LABS: CREATININE 1.12 mg/dL (0.55-1.02); POTASSIUM 4.6 mmol/L (3.5-5.1); TOTAL PROTEIN 7.4 gm/dL (6.4-8.2)
[2021-10-21 11:07] LABS: CREATININE,URINE 89.2 mg/dL (Not Estab.)
== END | disposition home or self-care (01) ==
LOC: LAB 13:05
PROVIDERS: ATTEND Internal Medicine Nephrology
DX: I45.10 Unspecified right bundle-branch block (principal); I10 Essential (primary) hypertension; E11.9 Type 2 diabetes mellitus without complications; I25.10 Atherosclerotic heart disease of native coronary artery without angina pectoris

== ENCOUNTER → 2021-10-27 | Outpatient (CLI) | payer MEDICARE | END | disposition home or self-care (01) | LOC: RESCLI 00:25 | PROVIDERS: ATTEND Family Medicine | DX: E11.9 Type 2 diabetes mellitus without complications (principal); I10 Essential (primary) hypertension; E78.5 Hyperlipidemia, unspecified; Z79.899 Other long term (current) drug therapy; Z88.1 Allergy status to other antibiotic agents; Z88.8 Allergy status to other drugs, medicaments and biological substances; Z98.890 Other specified postprocedural states ==

== ENCOUNTER 2021-11-20 10:48 | Emergency (ER) | payer MEDICARE ==
[~2021-11-20] VITALS: Ht 154.9 cm; Wt 89.8 kg
[2021-11-20] MEDS ORDERED: CEPACOL SORE T1 EAC2 MM (14:02)
[2021-11-20] MEDS ORDERED: PREDNISONE20 M1 PO (14:02)
== END 2021-11-20 14:15 | disposition home or self-care (01) ==
LOC: ED 10:48
DX: J06.9 Acute upper respiratory infection, unspecified (principal); Z88.1 Allergy status to other antibiotic agents; Z79.899 Other long term (current) drug therapy; Z79.82 Long term (current) use of aspirin; Z88.8 Allergy status to other drugs, medicaments and biological substances

== ENCOUNTER → 2022-05-17 | Outpatient (CLI) | payer MEDICARE ==
[~2022-05-17] MED LIST changes: +CEPACOL SORE T1 EAC2 MM; +CRESTOR10 M1 PO; +JARDIANCE25 MG PO; +LOPRESSOR50 M1 PO; +MAGNESIUM OXID400 MG PO; +PREDNISONE20 M1 PO; +VITAMIN C1000 M5 PO
[2022-05-17 16:47] LABS: CHOLESTEROL 157 mg/dL (<200); TRIGLYCERIDES 158 mg/dl (<150)
[2022-05-17 16:49] LABS: LDL CHOLESTEROL 88 mg/dL (9-159)
[2022-05-17 17:16] LABS: VITAMIN D, 25-HYDROXY 42.1 ng/mL (30-100)
== END | disposition home or self-care (01) ==
LOC: RESCLI 08:21
PROVIDERS: Family Medicine; ATTEND Internal Medicine
DX: E11.22 Type 2 diabetes mellitus with diabetic chronic kidney disease (principal); I13.10 Hypertensive heart and chronic kidney disease without heart failure, with stage 1 through stage 4 chronic kidney disease, or unspecified chronic kidney disease; I25.10 Atherosclerotic heart disease of native coronary artery without angina pectoris; N18.9 Chronic kidney disease, unspecified; R68.89 Other general symptoms and signs; G47.19 Other hypersomnia; R45.86 Emotional lability; R41.840 Attention and concentration deficit; R53.83 Other fatigue; R55 Syncope and collapse; G47.30 Sleep apnea, unspecified; E78.2 Mixed hyperlipidemia; Z87.442 Personal history of urinary calculi; K21.9 Gastro-esophageal reflux disease without esophagitis; K59.00 Constipation, unspecified; E55.9 Vitamin D deficiency, unspecified; N85.00 Endometrial hyperplasia, unspecified; E63.9 Nutritional deficiency, unspecified; Z79.899 Other long term (current) drug therapy; Z88.8 Allergy status to other drugs, medicaments and biological substances; Z79.82 Long term (current) use of aspirin; Z79.01 Long term (current) use of anticoagulants

== ENCOUNTER → 2022-08-02 | Outpatient (CLI) | payer MEDICARE | END | disposition home or self-care (01) | LOC: RESCLI 00:39 | PROVIDERS: ATTEND Internal Medicine | DX: F33.8 Other recurrent depressive disorders (principal); N85.00 Endometrial hyperplasia, unspecified; G47.19 Other hypersomnia; E78.2 Mixed hyperlipidemia; N20.0 Calculus of kidney; K59.00 Constipation, unspecified; E63.9 Nutritional deficiency, unspecified; I10 Essential (primary) hypertension; E78.5 Hyperlipidemia, unspecified; E11.9 Type 2 diabetes mellitus without complications; I25.10 Atherosclerotic heart disease of native coronary artery without angina pectoris; I12.9 Hypertensive chronic kidney disease with stage 1 through stage 4 chronic kidney disease, or unspecified chronic kidney disease; E11.22 Type 2 diabetes mellitus with diabetic chronic kidney disease; N18.9 Chronic kidney disease, unspecified; E55.9 Vitamin D deficiency, unspecified; Z98.890 Other specified postprocedural states; Z88.8 Allergy status to other drugs, medicaments and biological substances; Z79.82 Long term (current) use of aspirin; Z79.84 Long term (current) use of oral hypoglycemic drugs; Z79.899 Other long term (current) drug therapy ==

== ENCOUNTER → 2022-09-14 | Outpatient (CLI) | payer MEDICARE | END | disposition home or self-care (01) | LOC: US 01:43 | PROVIDERS: ATTEND Nurse Practitioner Women's Health | DX: N88.8 Other specified noninflammatory disorders of cervix uteri (principal); N95.0 Postmenopausal bleeding ==

== ENCOUNTER → 2023-02-01 | Outpatient (CLI) | payer MEDICARE | END | disposition home or self-care (01) | LOC: RAD 13:49 | PROVIDERS: ATTEND Physician Assistant | DX: M47.816 Spondylosis without myelopathy or radiculopathy, lumbar region (principal); N20.0 Calculus of kidney; M48.061 Spinal stenosis, lumbar region without neurogenic claudication ==

== ENCOUNTER → 2023-04-10 | Outpatient (CLI) | payer MEDICARE | END | disposition home or self-care (01) | LOC: US 01:01 | PROVIDERS: ATTEND Nurse Practitioner Women's Health | DX: N95.0 Postmenopausal bleeding (principal); R93.89 Abnormal findings on diagnostic imaging of other specified body structures ==

== ENCOUNTER → 2023-06-27 | Outpatient (CLI) | payer MEDICARE ==
[~2023-06-27] MED LIST changes: +ALLOPURINOL100 MG PO; -ALLOPURINOL300 MG PO; +LISINOPRIL2.5 MG PO; -LISINOPRIL5 MG PO; +ROSUVASTATIN CA20 MG PO; +VICTOZA SQ; +VITAMIN B125000 MCG SL
[2023-06-27 16:27] LABS: BASO # 0.1 10*3/uL (0.0-0.1); BASO % 0.8 % (0.0-1.0); BILIRUBIN Negative (Negative); BLOOD Negative (Negative); CLARITY Clear (Clear); COLOR Yellow (Yellow); EOS # 0.3 10*3/uL (0.0-0.4); EOS % 4.7 % (1.0-4.0); GLUCOSE 3+ (Negative); HEMATOCRIT 42.8 % (37.0-47.0); KETONE Negative (Negative); LEUKO ESTERASE Negative (Negative); LYMPH # 2.1 10*3/uL (1.3-4.4); LYMPH % 33.6 % (27.0-41.0); MEAN CELL VOLUME 90.7 fl (81.0-99.0); MEAN CORPUSCULAR HGB 30.5 pg (27.0-31.0); MEAN CORPUSCULAR HGB CONC 33.6 g/dl (33.0-37.0); MEAN PLATELET VOLUME 8.7 fl (9.6-12.3); MONO # 0.6 10*3/uL (0.1-1.0); NEUT # 3.3 10*3/uL (2.3-7.9); NEUT % 51.7 % (47.0-73.0); NITRITE Negative (Negative); PLATELET COUNT AUTOMATED 184 10*3/uL (130-400); RED BLOOD COUNT 4.72 10*6/uL (4.10-5.10); RED CELL DISTRI WIDTH 13.5 % (0-14.5); SPECIFIC GRAVITY >= 1.030 (1.001-1.030); UROBILINOGEN 0.2 E.U./dl (0.0-1.0); WHITE BLOOD COUNT 6.4 10*3/uL (4.8-10.8)
[2023-06-27 16:48] LABS: POTASSIUM 4.2 mmol/L (3.4-5.1); TOTAL PROTEIN 7.3 gm/dL (6.0-8.0)
== END | disposition home or self-care (01) ==
LOC: CT 15:00 → LAB 15:06
PROVIDERS: ATTEND Urology
DX: N28.1 Cyst of kidney, acquired (principal); K42.9 Umbilical hernia without obstruction or gangrene; N20.0 Calculus of kidney; Z90.49 Acquired absence of other specified parts of digestive tract

== ENCOUNTER → 2023-06-28 | Outpatient (CLI) | payer MEDICARE | END | disposition home or self-care (01) | LOC: CARD 00:24 | PROVIDERS: ATTEND Internal Medicine Cardiovascular Disease | DX: I25.10 Atherosclerotic heart disease of native coronary artery without angina pectoris (principal); I10 Essential (primary) hypertension; R94.31 Abnormal electrocardiogram [ECG] [EKG]; E78.5 Hyperlipidemia, unspecified ==

== ENCOUNTER 2023-07-29 10:51 | Emergency (ER) | payer MEDICARE ==
[~2023-07-29] VITALS: Ht 154.9 cm; Wt 84.4 kg
[2023-07-29] MEDS ORDERED: VICTOZA 2-0.6 MG/0.1 SC (13:27)
[2023-07-29 14:15] LABS: BASO % 0.5 % (0.0-1.0); EOS # 0.2 10*3/uL (0.0-0.4); EOS % 3.6 % (1.0-4.0); HEMATOCRIT 40.6 % (37.0-47.0); LYMPH % 23.4 % (27.0-41.0); MEAN CORPUSCULAR HGB 30.3 pg (27.0-31.0); MEAN CORPUSCULAR HGB CONC 33.3 g/dl (33.0-37.0); MEAN PLATELET VOLUME 8.9 fl (9.6-12.3); MONO # 0.6 10*3/uL (0.1-1.0); MONO % 14.1 % (3.0-9.0); NEUT # 2.4 10*3/uL (2.3-7.9); NEUT % 58.2 % (47.0-73.0); PLATELET COUNT AUTOMATED 146 10*3/uL (130-400); RED BLOOD COUNT 4.46 10*6/uL (4.10-5.10); RED CELL DISTRI WIDTH 14.4 % (0-14.5); WHITE BLOOD COUNT 4.2 10*3/uL (4.8-10.8)
[2023-07-29 14:38] LABS: POTASSIUM 4.3 mmol/L (3.4-5.1); TOTAL PROTEIN 7.3 gm/dL (6.0-8.0)
== END 2023-07-29 16:45 | disposition home or self-care (01) ==
LOC: ED 10:51
PROVIDERS: Nurse Practitioner Family
DX: U07.1 COVID-19 (principal); E11.22 Type 2 diabetes mellitus with diabetic chronic kidney disease; I12.9 Hypertensive chronic kidney disease with stage 1 through stage 4 chronic kidney disease, or unspecified chronic kidney disease; N18.30 Chronic kidney disease, stage 3 unspecified; F41.9 Anxiety disorder, unspecified; E87.8 Other disorders of electrolyte and fluid balance, not elsewhere classified; E11.65 Type 2 diabetes mellitus with hyperglycemia; K21.9 Gastro-esophageal reflux disease without esophagitis; I25.10 Atherosclerotic heart disease of native coronary artery without angina pectoris; D64.9 Anemia, unspecified; Z87.442 Personal history of urinary calculi; Z88.6 Allergy status to analgesic agent; Z88.5 Allergy status to narcotic agent; Z88.8 Allergy status to other drugs, medicaments and biological substances; Z90.49 Acquired absence of other specified parts of digestive tract; Z98.890 Other specified postprocedural states

== ENCOUNTER → 2023-08-08 | Outpatient (CLI) | payer MEDICARE ==
[~2023-08-08] MED LIST changes: +VICTOZA 2-0.6 MG/0.1 SC
== END | disposition home or self-care (01) ==
LOC: RESCLI 00:43
PROVIDERS: ATTEND Family Medicine
DX: I12.9 Hypertensive chronic kidney disease with stage 1 through stage 4 chronic kidney disease, or unspecified chronic kidney disease (principal); E11.22 Type 2 diabetes mellitus with diabetic chronic kidney disease; N18.30 Chronic kidney disease, stage 3 unspecified; K59.00 Constipation, unspecified; E55.9 Vitamin D deficiency, unspecified; E78.2 Mixed hyperlipidemia; K21.9 Gastro-esophageal reflux disease without esophagitis; M10.9 Gout, unspecified; Z98.890 Other specified postprocedural states; Z82.49 Family history of ischemic heart disease and other diseases of the circulatory system; Z88.8 Allergy status to other drugs, medicaments and biological substances; Z79.82 Long term (current) use of aspirin; Z79.899 Other long term (current) drug therapy

== ENCOUNTER → 2023-10-09 | Outpatient (CLI) | payer OTHER | LOC: US 09:00 | PROVIDERS: ATTEND Nurse Practitioner Women's Health | DX: N95.0 Postmenopausal bleeding (principal); N94.89 Other specified conditions associated with female genital organs and menstrual cycle ==

== ENCOUNTER → 2023-11-27 | Day surgery (SDC) | payer OTHER ==
[~2023-11-27] VITALS: Ht 154.9 cm; Wt 83.9 kg
[~2023-11-27] MED LIST changes: +Lidocaine Hydrochloride 2% 10 ML AMP IM ONE; +Midazolam Hydrochloride 2 MG/2 ML VIAL IV ONE; +Midazolam Hydrochloride 2 MG/2 ML VIAL IV STA; +PROPOFOL 200 MG/20 ML VIAL IV ONE; +SODIUM CHLORIDE 0.9% 1,000 ML IV ONE; +SODIUM CHLORIDE 0.9% 1,000 ML IV SCH
[2023-11-27 07:01] VITALS: BP 120/70
[2023-11-27 08:05] VITALS: BP 114/57
[2023-11-27 08:19] VITALS: BP 110/61
[2023-11-27 08:33] VITALS: BP 109/71
== END | disposition home or self-care (01) ==
LOC: SDC 11-22 14:00
PROVIDERS: ATTEND Obstetrics & Gynecology
DX: N95.0 Postmenopausal bleeding (principal); N84.0 Polyp of corpus uteri; I12.9 Hypertensive chronic kidney disease with stage 1 through stage 4 chronic kidney disease, or unspecified chronic kidney disease; E11.22 Type 2 diabetes mellitus with diabetic chronic kidney disease; N18.9 Chronic kidney disease, unspecified; I25.10 Atherosclerotic heart disease of native coronary artery without angina pectoris; K21.9 Gastro-esophageal reflux disease without esophagitis; F41.9 Anxiety disorder, unspecified; M10.9 Gout, unspecified; E78.00 Pure hypercholesterolemia, unspecified; Z95.818 Presence of other cardiac implants and grafts; Z98.41 Cataract extraction status, right eye; Z87.442 Personal history of urinary calculi; Z90.49 Acquired absence of other specified parts of digestive tract; Z98.890 Other specified postprocedural states; Z79.899 Other long term (current) drug therapy; Z83.3 Family history of diabetes mellitus; Z82.49 Family history of ischemic heart disease and other diseases of the circulatory system

== ENCOUNTER → 2024-05-03 | Outpatient (CLI) | payer MEDICARE ==
[~2024-05-03] MED LIST changes: -Lidocaine Hydrochloride 2% 10 ML AMP IM ONE; -Midazolam Hydrochloride 2 MG/2 ML VIAL IV ONE; -Midazolam Hydrochloride 2 MG/2 ML VIAL IV STA; -PROPOFOL 200 MG/20 ML VIAL IV ONE; -SODIUM CHLORIDE 0.9% 1,000 ML IV ONE; -SODIUM CHLORIDE 0.9% 1,000 ML IV SCH
[2024-05-03 10:31] LABS: HEMATOCRIT 42.3 % (37.0-47.0); MEAN CELL VOLUME 91.6 fl (81.0-99.0); MEAN CORPUSCULAR HGB 31.6 pg (27.0-31.0); MEAN CORPUSCULAR HGB CONC 34.5 g/dl (33.0-37.0); MEAN PLATELET VOLUME 9.2 fl (9.6-12.3); RED BLOOD COUNT 4.62 10*6/uL (4.10-5.10); RED CELL DISTRI WIDTH 13.7 % (0-14.5); WHITE BLOOD COUNT 7.1 10*3/uL (4.8-10.8)
[2024-05-03 11:09] LABS: POTASSIUM 4.3 mmol/L (3.4-5.1); TOTAL PROTEIN 7.6 gm/dL (6.0-8.0)
== END | disposition home or self-care (01) ==
LOC: ORTHO 01:24
PROVIDERS: Physician Assistant; ATTEND Orthopaedic Surgery
DX: M19.042 Primary osteoarthritis, left hand (principal); M65.312 Trigger thumb, left thumb; Z79.899 Other long term (current) drug therapy

== ENCOUNTER → 2024-05-15 | Outpatient (CLI) | payer MEDICARE | END | disposition home or self-care (01) | LOC: MAMMO 01:35 | PROVIDERS: ATTEND Physician Assistant | DX: Z12.31 Encounter for screening mammogram for malignant neoplasm of breast (principal) ==

== ENCOUNTER 2024-10-10 16:57 | Observation (INO) | payer MEDICARE ==
[~2024-10-10] VITALS: Ht 154.9 cm; Wt 88.5 kg
[2024-10-10 17:10] VITALS: BP 124/62
[2024-10-10 17:25] LABS: BASO # 0.1 10*3/uL (0.0-0.1); BASO % 0.8 % (0.0-1.0); EOS # 0.4 10*3/uL (0.0-0.4); EOS % 5.5 % (1.0-4.0); HEMATOCRIT 40.2 % (37.0-47.0); MEAN CELL VOLUME 91.4 fl (81.0-99.0); MEAN CORPUSCULAR HGB 30.2 pg (27.0-31.0); MEAN CORPUSCULAR HGB CONC 33.1 g/dl (33.0-37.0); MEAN PLATELET VOLUME 8.7 fl (9.6-12.3); MONO # 0.4 10*3/uL (0.1-1.0); MONO % 6.8 % (3.0-9.0); NEUT # 3.6 10*3/uL (2.3-7.9); NEUT % 57.2 % (47.0-73.0); PLATELET COUNT AUTOMATED 180 10*3/uL (130-400); RED CELL DISTRI WIDTH 13.3 % (0-14.5); WHITE BLOOD COUNT 6.3 10*3/uL (4.8-10.8)
[2024-10-10] MEDS ORDERED: NITROGLYCERIN0.4 MG SL (17:34)
[2024-10-10 17:46] LABS: ACT PARTIAL THROMBO TIME 26.6 SECONDS (20.0-32.1)
[2024-10-10 17:56] LABS: POTASSIUM 3.9 mmol/L (3.4-5.1); TOTAL PROTEIN 7.2 gm/dL (6.0-8.0)
[2024-10-10] MEDS ORDERED: MORPHINE Sulfate 2 MG/ML SYR IV ONE (18:35)
[2024-10-10] MEDS ORDERED: Ondansetron Hydrochloride 4 MG/2 ML VIAL IV ONE (18:35)
[2024-10-10] MEDS ORDERED: MORPHINE Sulfate 2 MG/ML SYR IV PRN (19:55)
[2024-10-10] MEDS ORDERED: NITROGLYCERIN 0.4 MG BOT SL PRN (19:55)
[2024-10-10] MEDS ORDERED: DOCUSATE SODIUM 100 MG CAP PO PRN (19:55)
[2024-10-10] MEDS ORDERED: Ondansetron Hydrochloride 4 MG/2 ML VIAL IV PRN (19:55)
[2024-10-10] MEDS ORDERED: DEXTROSE 10 % IN WATER 250 ML IV PRN (20:20)
[2024-10-10] MEDS ORDERED: INSULIN LISPRO 1 UNIT/0.01 ML SQ SCH (22:00)
[2024-10-10] MEDS ORDERED: ATORVASTATIN CALCIUM 80 MG TAB PO SCH (22:00)
[2024-10-10] MEDS ORDERED: Metoprolol Tartrate 50 MG TAB PO SCH (22:00)
[2024-10-10 22:02] VITALS: BP 133/75
[2024-10-11 02:47] VITALS: BP 131/71
[2024-10-11 05:21] VITALS: BP 125/80
[2024-10-11] MEDS ORDERED: Regadenoson 0.4 MG/5 ML SYR IV ONE (06:20)
[2024-10-11 07:38] LABS: BASO # 0.1 10*3/uL (0.0-0.1); BASO % 0.8 % (0.0-1.0); EOS # 0.4 10*3/uL (0.0-0.4); EOS % 5.5 % (1.0-4.0); HEMATOCRIT 41.1 % (37.0-47.0); MEAN CELL VOLUME 90.9 fl (81.0-99.0); MEAN CORPUSCULAR HGB 29.9 pg (27.0-31.0); MEAN CORPUSCULAR HGB CONC 32.8 g/dl (33.0-37.0); MEAN PLATELET VOLUME 8.8 fl (9.6-12.3); MONO # 0.6 10*3/uL (0.1-1.0); NEUT # 3.9 10*3/uL (2.3-7.9); NEUT % 52.7 % (47.0-73.0); PLATELET COUNT AUTOMATED 166 10*3/uL (130-400); RED BLOOD COUNT 4.52 10*6/uL (4.10-5.10); RED CELL DISTRI WIDTH 13.6 % (0-14.5); WHITE BLOOD COUNT 7.3 10*3/uL (4.8-10.8)
[2024-10-11 08:07] LABS: FREE T4 1.24 ng/dl (0.89-1.76); POTASSIUM 4.2 mmol/L (3.4-5.1); TOTAL PROTEIN 7.1 gm/dL (6.0-8.0)
[2024-10-11] MEDS ORDERED: ALLOPURINOL 100 MG TAB PO SCH (10:00)
[2024-10-11] MEDS ORDERED: FAMOTIDINE 20 MG TAB PO SCH (10:00)
[2024-10-11] MEDS ORDERED: ISOSORBIDE MONONITRATE 60 MG TAB PO SCH (10:00)
[2024-10-11] MEDS ORDERED: ASPIRIN ENTERIC COATED 81 MG TAB PO SCH (10:00)
[2024-10-11 11:22] VITALS: BP 146/80
== END 2024-10-11 20:11 | disposition home or self-care (01) ==
LOC: ED 16:57 → EDHOLD 19:33
PROVIDERS: Internal Medicine; ADMIT Internal Medicine; ATTEND Internal Medicine
DX: R07.89 Other chest pain (principal); E78.5 Hyperlipidemia, unspecified; I25.10 Atherosclerotic heart disease of native coronary artery without angina pectoris; E11.65 Type 2 diabetes mellitus with hyperglycemia; E11.22 Type 2 diabetes mellitus with diabetic chronic kidney disease; I12.0 Hypertensive chronic kidney disease with stage 5 chronic kidney disease or end stage renal disease; N18.31 Chronic kidney disease, stage 3a; E66.01 Morbid (severe) obesity due to excess calories; I25.118 Atherosclerotic heart disease of native coronary artery with other forms of angina pectoris; K21.9 Gastro-esophageal reflux disease without esophagitis; Z79.4 Long term (current) use of insulin; Z79.82 Long term (current) use of aspirin; Z79.899 Other long term (current) drug therapy

== ENCOUNTER 2024-10-15 11:30 | Emergency (ER) | payer MEDICARE ==
[~2024-10-15] VITALS: Ht 154.9 cm; Wt 88.5 kg
[2024-10-15] MEDS ORDERED: MORPHINE Sulfate 2 MG/ML SYR IV ONE (11:45)
[2024-10-15] MEDS ORDERED: SODIUM CHLORIDE 0.9% 1,000 ML IV ONE (11:45)
[2024-10-15] MEDS ORDERED: Ondansetron Hydrochloride 4 MG/2 ML VIAL IV ONE (11:45)
[2024-10-15 12:24] LABS: BASO # 0.1 10*3/uL (0.0-0.1); BASO % 0.8 % (0.0-1.0); EOS # 0.4 10*3/uL (0.0-0.4); HEMATOCRIT 40.2 % (37.0-47.0); MEAN CELL VOLUME 91.2 fl (81.0-99.0); MEAN CORPUSCULAR HGB 30.4 pg (27.0-31.0); MEAN CORPUSCULAR HGB CONC 33.3 g/dl (33.0-37.0); MONO # 0.4 10*3/uL (0.1-1.0); MONO % 6.3 % (3.0-9.0); NEUT # 3.6 10*3/uL (2.3-7.9); NEUT % 57.8 % (47.0-73.0); PLATELET COUNT AUTOMATED 176 10*3/uL (130-400); RED BLOOD COUNT 4.41 10*6/uL (4.10-5.10); RED CELL DISTRI WIDTH 13.4 % (0-14.5); WHITE BLOOD COUNT 6.2 10*3/uL (4.8-10.8)
[2024-10-15] MEDS ORDERED: Ondansetron Hydrochloride 4 MG TAB PO ONE (12:30)
[2024-10-15] MEDS ORDERED: traMADol Hydrochloride 50 MG TAB PO ONE (12:30)
[2024-10-15 12:43] LABS: BILIRUBIN Negative (Negative); BLOOD Negative (Negative); CLARITY Clear (Clear); COLOR Yellow (Yellow); GLUCOSE 3+ (Negative); KETONE Negative (Negative); LEUKO ESTERASE Negative (Negative); NITRITE Negative (Negative); PH 5.5 (4.5-8.0); SPECIFIC GRAVITY >= 1.030 (1.001-1.030); UROBILINOGEN 0.2 E.U./dl (0.0-1.0)
[2024-10-15 12:43] LABS: BUN 17 mg/dl (9-23); CHLORIDE 102 mmol/L (98-107)
[2024-10-15 12:52] LABS: WBC 0-2 wbc/hpf (0-5)
[2024-10-15] MEDS ORDERED: TRAMADOL HCL50 MG PO (13:05)
[2024-10-15] MEDS ORDERED: Ondansetron4 MG PO (13:05)
== END 2024-10-15 13:18 | disposition home or self-care (01) ==
LOC: ED 11:30
PROVIDERS: Emergency Medicine
DX: R10.9 Unspecified abdominal pain (principal); R11.2 Nausea with vomiting, unspecified; E11.22 Type 2 diabetes mellitus with diabetic chronic kidney disease; I12.0 Hypertensive chronic kidney disease with stage 5 chronic kidney disease or end stage renal disease; N18.5 Chronic kidney disease, stage 5; I25.10 Atherosclerotic heart disease of native coronary artery without angina pectoris; E78.5 Hyperlipidemia, unspecified; Z88.1 Allergy status to other antibiotic agents; Z88.6 Allergy status to analgesic agent; Z88.8 Allergy status to other drugs, medicaments and biological substances; Z79.899 Other long term (current) drug therapy; Z79.82 Long term (current) use of aspirin; Z90.49 Acquired absence of other specified parts of digestive tract; Z95.5 Presence of coronary angioplasty implant and graft; Z98.890 Other specified postprocedural states

== ENCOUNTER 2025-07-12 21:39 | Emergency (ER) | payer MEDICARE ==
[~2025-07-12] VITALS: Ht 152.4 cm; Wt 90.7 kg
[~2025-07-12 21:39] MED LIST changes: +Ondansetron4 MG PO
[2025-07-12] MEDS ORDERED: MELOXICAM7.5 MG PO (23:28)
[2025-07-28] MEDS ORDERED: Imdur SA60 MG PO (15:05)
[2025-07-28] MEDS ORDERED: ATORVASTATIN CA80 M1 PO (15:05)
[2025-07-28] MEDS ORDERED: LOPRESSOR25 MG PO (15:05)
[2025-07-29] MEDS ORDERED: MAGNESIUM OXID400 MG PO (11:50)
[2025-07-29] MEDS ORDERED: OMEPRAZOLE MAGN20 MG PO (11:50)
== END 2025-07-13 00:33 | disposition home or self-care (01) ==
LOC: ED 21:39
DX: S83.92XA Sprain of unspecified site of left knee, initial encounter (principal); E11.9 Type 2 diabetes mellitus without complications; I10 Essential (primary) hypertension; E78.00 Pure hypercholesterolemia, unspecified; I25.10 Atherosclerotic heart disease of native coronary artery without angina pectoris; K21.9 Gastro-esophageal reflux disease without esophagitis; F41.9 Anxiety disorder, unspecified; Z88.5 Allergy status to narcotic agent; Z88.1 Allergy status to other antibiotic agents; Z88.8 Allergy status to other drugs, medicaments and biological substances; Z98.890 Other specified postprocedural states; Z90.49 Acquired absence of other specified parts of digestive tract; X58.XXXA Exposure to other specified factors, initial encounter; Y93.01 Activity, walking, marching and hiking; Y92.89 Other specified places as the place of occurrence of the external cause; Y99.8 Other external cause status